=== PATIENT | female | born 1950 | race African-American/Black ===

== ENCOUNTER 2021-04-11 15:37 | Emergency (ER) | payer OTHER, SELFPAY ==
--- NOTE | 2021-04-11 16:12 | RAD REPORT ---
EXAM DESCRIPTION: CT - Head Brain Wo Cont - 04/11/2021 4:03 pm CLINICAL HISTORY: right leg weakness COMPARISON: <Comparisons> TECHNIQUE: All CT scans are performed using dose optimization technique as appropriate and may inclu de automated exposure control or mA/KV adjustment according to patient size. FINDINGS: No intracranial hemorrhage, hydrocephalus or extra-axial fluid collection.Age indeterminat e though possibly acute left basal ganglia lacunar infarct. Empty sella, typically a normal variant. Mucous retention cyst in left maxillary sinus. The calvarium is intact. IMPRESSION: Findings concerning for acute left basal ganglia lacunar infarct given the patient's sym ptoms. MRI could confirm.
--- NOTE | 2021-04-11 16:33 | RAD REPORT ---
EXAM DESCRIPTION: RAD - Chest Single View - 04/11/2021 4:22 pm CLINICAL HISTORY: left leg weakness COMPARISON: No comparisons FINDINGS: Lines: None. Lungs: No evidence of edema or pneumonia. Pleural: No significant pleural effusions or pneumothorax. Cardiac: The heart size is within normal limits. Bones: No acute fractures. Other: IMPRESSION: No acute cardiopulmonary disease.
[2021-04-11 16:45] LABS: Absolute Lymphocytes (CBC) 2.4 K/uL (0.7-4.9); Basophils % 0.4 % (0-1.3); Hematocrit 37.9 % (36.0-45.0); Lymphocytes % 23.6 % (15.3-44.8); MPV 7.4 fL (7.6-11.3); RBC Red Blood Cell Count 4.61 M/uL (3.86-4.86)
[2021-04-11 16:54] LABS: Protime INR 1.09
[2021-04-11 17:01] LABS: ALT/SGPT 16 U/L (12-78); AST/SGOT 20 U/L (15-37); Alkaline Phosphatase 73 U/L (45-117); BUN Blood Urea Nitrogen 15 mg/dL (7-18); Bicarbonate 28 mmol/L (21-32); Bilirubin Direct 0.3 mg/dL (0-0.2); Bilirubin Total 1.6 mg/dL (0.2-1.0); Glucose Level 103 mg/dL (74-106); Magnesium 2.1 mg/dL (1.8-2.4); NT PRO-BNP 170 pg/mL (<125); Potassium 3.3 mmol/L (3.5-5.1); Protein, Total 10.1 g/dL (6.4-8.2); Sodium Level 141 mmol/L (136-145); Troponin (Emerg Dept Use Only) < 0.02 ng/mL (0.0-0.045)
[2021-04-11] MEDS ORDERED: METOPROLOL TAR 50 MG TAB ONE (17:16)
[2021-04-11] MEDS ORDERED: ASPIRIN 81 MG CHEWABLE TABLET ONE (17:16)
[2021-04-11] MEDS ORDERED: METOPROLOL TARTRATE 5 MG/5 ML INJ IV ONE (17:17)
[2021-04-11] MEDS ORDERED: NA CHLORIDE 0.9% 1,000 ML ONE (17:17)
[2021-04-11] MEDS ORDERED: NA CHLORIDE 0.9% 100 ML ONE (17:46)
[2021-04-11] MEDS ORDERED: FOLIC ACID 5 MG/ML VIAL ONE (17:46)
--- NOTE | 2021-04-11 18:00 | RAD REPORT ---
EXAM DESCRIPTION: CT - Neck Angio - 04/11/2021 5:51 pm CLINICAL HISTORY: weakness of right arm and right leg COMPARISON: No comparisons TECHNIQUE: CT angiography of the neck vessels was performed with MIPs. All CT scans are performed using dose optimization technique as appropriate and may include automated exposure control or mA/KV adjustment according to patient size. FINDINGS: A left aortic arch is identified with normal three vessel configuration of the great vesse ls. No significant flow abnormality is seen of the common carotid bilaterally. No significant stenosis is identified involving the cervical segments of both internal carotid arteri es. Normal flow is seen within both vertebral arteries. Multinodular thyroid. IMPRESSION: No significant flow abnormality of the neck vessels is identified.
--- NOTE | 2021-04-11 18:01 | RAD REPORT ---
EXAM DESCRIPTION: CT - Head angio - 04/11/2021 5:51 pm CLINICAL HISTORY: right arm and right leg weakness COMPARISON: Head Brain Wo Cont dated 04/11/2021 TECHNIQUE: CT angiography of the head was performed with MIPs. All CT scans are performed using dose optimization technique as appropriate and may include automated exposure control or mA/KV adjustment according to patient size. FINDINGS: Anterior circulation: No aneurysm or large vessel occlusion. No hemodynamically significant stenosis. No arteriovenous malf ormation identified. 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 No aneurysm or large vessel occlusion. No hemodynamically significant stenosis. No arteriovenous malformation identified. IMPRESSION: No significant flow abnormality is detected.
[2021-04-11] MEDS ORDERED: dilTIAZem HCL 25 MG/5 ML VIAL IV ONE (18:48)
[2021-04-11] MEDS ORDERED: Nicardipine/NS 25 MG/250 ML KIT IV ONE (18:57)
--- NOTE | 2021-04-11 19:03 | EDPHYS ---
Physician Documentation [facility] Name: Jaja Pan Age: 71 yrs Sex: Female : 1950 Arrival Date: 04/11/2021 Time: 15:42 Bed 14 Private MD: ED Physician Ulises Stokes HPI: 04/11 16:15 This 71 yrs old Black Female presents to ER via Wheelchair with complaints of Trouble cp Walking. 16:15 The patient presents to the emergency department with weakness of the right lower cp extremity, impaired coordination. Onset: The symptoms/episode began/occurred patient reports 2 days ago, Monday evening. Context: occurred at home. Associated signs and symptoms: Pertinent negatives: altered mental status, fever, headache, syncope. Severity of symptoms: in the emergency department the symptoms have improved mildly. Patient's baseline: Neuro: alert and fully oriented, Motor: no deficits, Ambulation: walks without assistance, Speech: normal. Current symptoms: right leg weakness. Historical: - Allergies: 16:11 PENICILLINS; aj2 - Immunization history:: Client reports receiving the 2nd dose of the Covid vaccine, Client reports receiving the 2nd dose of the Covid vaccine. - Social history:: Smoking status: Patient reports the use of cigarette tobacco products, denies chronic smoking, but will smoke occasionally, Smoking status: Patient reports the use of cigarette tobacco products, Reports 5 cigarettes daily. ROS: 16:18 Constitutional: Negative for body aches, chills, fever, poor PO intake. cp 16:18 Eyes: Negative for injury, pain, redness, and discharge. cp 16:18 ENT: Negative for drainage from ear(s), ear pain, sore throat, difficulty swallowing, difficulty handling secretions. 16:18 Cardiovascular: Negative for chest pain, edema, palpitations. 16:18 Respiratory: Negative for cough, shortness of breath, wheezing. 16:18 Abdomen/GI: Negative for abdominal pain, nausea, vomiting, and diarrhea, constipation. 16:18 Back: Negative for pain at rest, pain with movement. 16:18 Neuro: Positive for weakness, of the right leg, Negative for altered mental status, dizziness, headache, numbness, syncope. 16:18 All other systems are negative. Exam: 16:20 ECG was reviewed by the Attending Physician. cp 16:23 Constitutional: The patient appears in no acute distress, alert, awake, cp non-diaphoretic, non-toxic, well developed, well nourished. 16:23 Head/Face: Normocephalic, atraumatic. cp 16:23 Eyes: Periorbital structures: appear normal, Pupils: equal, round, and reactive to light and accomodation, Extraocular movements: intact throughout, Conjunctiva: normal, no exudate, no injection, Sclera: no appreciated abnormality, Lids and lashes: appear normal, bilaterally. 16:23 ENT: External ear(s): are unremarkable, Ear canal(s): are normal, clear, TM's: are normal, Nose: is normal, Mouth: Lips: moist, Oral mucosa: pink and intact, moist, Posterior pharynx: Airway: no evidence of obstruction, patent. 16:23 Neck: ROM/movement: is normal, is supple, without pain, no range of motions limitations. 16:23 Chest/axilla: Inspection: normal, Palpation: is normal, no crepitus, no tenderness. 16:23 Cardiovascular: Rate: normal, Rhythm: regular, Edema: is not appreciated, JVD: is not appreciated. 16:23 Respiratory: the patient does not display signs of respiratory distress, Respirations: normal, no use of accessory muscles, no retractions, labored breathing, is not present, Breath sounds: are clear throughout, no decreased breath sounds, no stridor, no wheezing. 16:23 Abdomen/GI: Inspection: abdomen appears normal, Bowel sounds: active, all quadrants, Palpation: abdomen is soft and non-tender, in all quadrants. 16:23 Back: pain, is absent, ROM is normal. 16:23 Neuro: Orientation: to person, place \T\ time. Mentation: is normal, Motor: moves all fours, strength is 4/5 in the right leg, Sensation: no obvious gross deficits. Vital Signs: 15:58 BP 213 / 145; Pulse 92; Resp 20; Temp 98.0; Pulse Ox 99% on R/A; Pain 0/10; ch5 16:03 BP 213 / 142; Pulse 92; Resp 20; Temp 98; Pulse Ox 99% ; Pain 0/10; ch5 16:08 Weight 99.79 kg; Height 5 ft. 4 in. (162.56 cm); em1 16:36 BP 203 / 112; Pulse 78; Resp 20; Temp 98.3; Pulse Ox 99% ; Weight 99.79 kg; Height 5 aj2 ft. 4 in. (162.56 cm); 18:11 BP 228 / 114; Pulse 61; Resp 18; Temp 98.3; Pulse Ox 100% ; aj2 19:03 BP 199 / 96; Pulse 64; Resp 16; Pulse Ox 100% on R/A; iw 19:49 BP 216 / 93; Pulse 58; Resp 18; Pulse Ox 100% ; lh3 20:30 BP 194 / 94; Pulse 58; Resp 18; Pulse Ox 100% ; lh3 21:00 BP 173 / 94; Pulse 60; Resp 18; Pulse Ox 100% ; lh3 16:36 Body Mass Index 37.76 (99.79 kg, 162.56 cm) aj2 NIH Stroke Scale Scores: 16:23 NIHSS Score: 4 cp 16:38 NIHSS Score: 0 aj2 MDM: 15:54 Patient medically screened. [facility] 18:05 Data reviewed: vital signs, nurses notes, lab test result(s), EKG, radiologic studies, cp CT scan, plain films. 18:05 Test interpretation: by ED physician or midlevel provider: ECG, plain radiologic cp studies. Counseling: I had a detailed discussion with the patient and/or guardian regarding: the historical points, exam findings, and any diagnostic results supporting the discharge/admit diagnosis, lab results, radiology results, the need to transfer to another facility, for higher level of care. 18:45 Physician consultation: was contacted at 18:45, DR Ace, neuroly \T\ [facility] wants cardene drip discontinued and give IV hydralazine. Wants systolic pressure of less than 220 and above 200. 19:57 Physician consultation: was contacted at 19:00, regarding regarding transfer, to [facility]. patient's condition, accepting physician will be DR Ford, hospitalist. 04/11 15:59 Order name: Basic Metabolic Panel cp 04/11 15:59 Order name: CBC with Diff cp 04/11 15:59 Order name: LFT's cp 04/11 15:59 Order name: Magnesium; Complete Time: 18:02 cp 04/11 15:59 Order name: NT PRO-BNP; Complete Time: 18:02 cp 10/03 15:59 Order name: PT-INR; Complete Time: 17:06 cp 04/11 17:06 Interpretation: Abnormal: PT 12.6. cp 04/11 15:59 Order name: Troponin (emerg Dept Use Only); Complete Time: 18:02 cp 04/11 15:59 Order name: XRAY Chest (1 view); Complete Time: 17:06 cp 04/11 15:59 Order name: Basic Metabolic Panel; Complete Time: 18:02 EDMS 04/11 18:02 Interpretation: Normal except: K 3.3; GFR 49; CA 10.2. cp 04/11 15:59 Order name: CBC with Automated Diff; Complete Time: 17:06 EDMS 04/11 15:59 Order name: Liver (Hepatic) Function; Complete Time: 18:02 EDMS 04/11 18:02 Interpretation: Normal except: BILIT 1.6; BILID 0.3; TP 10.1; GLOB 6.1; A/G 0.7. cp 04/11 16:47 Order name: Glucose, Ancillary Testing; Complete Time: 17:06 EDMS 04/11 18:46 Order name: SARS-COV-2 RT PCR; Complete Time: 18:56 EDMS 04/11 15:59 Order name: EKG; Complete Time: 16:00 cp 04/11 15:59 Order name: CT Head Brain wo Cont; Complete Time: 16:14 cp 04/11 16:14 Interpretation: Report reviewed. cp 04/11 16:17 Order name: CT Head Angio; Complete Time: 18:02 cp 04/11 16:17 Order name: CT Neck Angio; Complete Time: 18:02 cp 04/11 15:59 Order name: Cardiac monitoring; Complete Time: 17:13 cp 04/11 15:59 Order name: EKG - Nurse/Tech; Complete Time: 16:25 cp 04/11 15:59 Order name: IV Saline Lock; Complete Time: 16:25 cp 04/11 15:59 Order name: Labs collected and sent; Complete Time: 16:25 cp 04/11 15:59 Order name: O2 Per Protocol; Complete Time: 16:25 cp 04/11 15:59 Order name: O2 Sat Monitoring; Complete Time: 16:25 cp EC:20 Rate is 83 beats/min. Rhythm is regular. SC interval is normal. QRS interval is normal. cp QT interval is normal. T waves are Inverted in leads aVL, aVR. Interpreted by me. Reviewed by me. Administered Medications: 18:47 Discontinued: Cardene (niCARdipine) 5 mg/hr IV at calculated rate continuous; 5mg/hr cp 16:26 CANCELLED (Physician Discretion): Metoprolol 25 mg PO once cp 16:53 Drug: Lopressor (metoprolol) 5 mg Route: IVP; Site: right antecubital; aj2 21:10 Follow up: Response: No adverse reaction lh3 16:53 Drug: Metoprolol 50 mg Route: PO; aj2 21:10 Follow up: Response: No adverse reaction lh3 16:54 Drug: NS 0.9% 500 ml Route: IV; Rate: bolus; Site: right antecubital; aj2 16:54 Drug: Aspirin Chewable Tablet 324 mg Route: PO; aj2 17:00 Drug: foLIC Acid 1 mg Route: IVPB; Site: right antecubital; aj2 18:24 Not Given (Physician Discretion): Cardizem (diltiazem) 10 mg IVP once; Over 2 minutes cp 18:31 Drug: NS 0.9% 500 ml Route: IV; Rate: 125 ml/hr; Site: right antecubital; aj2 18:38 Drug: Cardene (niCARdipine) 5 mg/hr Route: IV; Rate: calculated rate; Site: right iw antecubital; 19:03 Not Given (Hemodynamic Parameters): hydrALAZINE 5 mg IVP once; may repeat if systolic iw pressure over 220 after 20 minutes 20:24 Drug: hydrALAZINE 10 mg {Note: Per Socorro Ballesteros, CONSTRUCTION HELPER, pt target Systolic BP needs to be lh3 180-Pt current BP 207/101.} Route: IVP; Site: right antecubital; 21:09 Follow up: Response: No adverse reaction; Blood pressure is lowered lh3 21:06 Not Given (Other Intervention Used): hydrALAZINE 5 mg IVP once; target systolic lh3 pressure of between 220 and 200 Point of Care Testing: Blood Glucose: 16:11 Blood Glucose: 89 mg/dL; aj2 Ranges: Critical Glucose Levels:Adult <50 mg/dl or >400 mg/dl <40 mg/dl or >180 mg/dl Disposition: 04/12 06:40 Co-signature as Attending Physician, Ulises Stokes MD I agree with the assessment and joesph plan of care. Disposition Summary: 04/11/21 19:02 Transfer Ordered Transfer Location: [facility] cp Reason: Higher level of care cp Condition: Stable cp Problem: new cp Symptoms: have improved cp Accepting Physician: DR Ford(04/11/21 21:13) lh3 Diagnosis - Cerebral infarction, unspecified cp Forms: - Medication Reconciliation Form cp - SBAR form cp NIH Stroke Scale - NIH Stroke Score Date: 04/11/2021 Time: 16:23 Total Score = 4 1a. Level of Consciousness (LOC) - 0(Alert) 1b. Level of Consciousness (LOC) (Month \T\ Age) - 0(Both) 1c. LOC Commands (Open \T\ Closes Eyes/Manufacturing Engineer Automotive) - 0(Both) 2. Best Gaze (Lateral Gaze Paresis) - 0(Normal) 3. Visual Field Loss - 0(No visual loss) 4. Facial Palsy - 0(Normal) 5a. Left Arm: Motor (10-second hold) - 0(No drift) 5b. Right Arm: Motor (10-second hold) - 1(Drift) 6a. Left Leg: Motor (5-second hold - always test supine) - 0(No drift) 6b. Right Leg: Motor (5-second hold - always test supine) - 1(Drift) 7. Limb Ataxia (finger/nose \T\ heel/black - test with eyes open) - 2(Present in two limbs) 8. Sensory Loss (pinprick arms/legs/face) - 0(Normal) 9. Best Language: Aphasia (description/naming/reading) - 0(No aphasia) 10. Dysarthria (speech clarity - read or repeat words) - 0(Normal) 11. Extinction and Inattention (visual/tactile/auditory/spatial/personal) - 0(No abnormality) Initials: cp NIH Stroke Scale - NIH Stroke Score Date: 04/11/2021 Time: 16:38 Total Score = 0 1a. Level of Consciousness (LOC) - 0(Alert) 1b. Level of Consciousness (LOC) (Month \T\ Age) - 0(Both) 1c. LOC Commands (Open \T\ Closes Eyes/Manufacturing Engineer Automotive) - 0(Both) 2. Best Gaze (Lateral Gaze Paresis) - 0(Normal) 3. Visual Field Loss - 0(No visual loss) 4. Facial Palsy - 0(Normal) 5a. Left Arm: Motor (10-second hold) - 0(No drift) 5b. Right Arm: Motor (10-second hold) - 0(No drift) 6a. Left Leg: Motor (5-second hold - always test supine) - 0(No drift) 6b. Right Leg: Motor (5-second hold - always test supine) - 0(No drift) 7. Limb Ataxia (finger/nose \T\ heel/black - test with eyes open) - 0(Absent) 8. Sensory Loss (pinprick arms/legs/face) - 0(Normal) 9. Best Language: Aphasia (description/naming/reading) - 0(No aphasia) 10. Dysarthria (speech clarity - read or repeat words) - 0(Normal) 11. Extinction and Inattention (visual/tactile/auditory/spatial/personal) - 0(No abnormality) Initials: aj2 Signatures: Dispatcher [employer] EDMS Ulises Stokes MD MD cha Williams, Irene, RN RN iw Ulises Ballesteros PA PA cp Sommer Cool, RN RN 3 Christine Ball [facility] Jaiden Aparicio, RN RN ch5 Corrections: (The following items were deleted from the chart) 04/11 16:26 16:24 Metoprolol 25 mg PO once ordered. cp cp 17:54 16:57 CORONAVIRUS+MR.LAB.BRZ ordered. EDMS EDMS 19:05 18:29 Misc. Order ordered. cp cp 21:13 19:02 DR Ford cp lh3
--- NOTE | 2021-04-11 19:03 | ER ---
Nurse's Notes [facility] Name: Jaja Pan Age: 71 yrs Sex: Female : 1950 Arrival Date: 04/11/2021 Time: 15:42 Bed 14 Private MD: Diagnosis: Cerebral infarction, unspecified Presentation: 04/11 15:58 Chief complaint: Patient states: Pt had sudden onset of weakness in left leg Monday. ch5 Unable to walk. she has also stopped taking HTN meds " because they make my pressure go up". Coronavirus screen: Vaccine status: Patient reports receiving the 2nd dose of the covid vaccine. Ebola Screen: Patient negative for fever greater than or equal to 101.5 degrees Fahrenheit, and additional compatible Ebola Virus Disease symptoms Patient denies exposure to infectious person. Patient denies travel to an Ebola-affected area in the 21 days before illness onset. An acute neurological deficit is present. Initial Sepsis Screen: Does the patient meet any 2 criteria? No. Patient's initial sepsis screen is negative. Does the patient have a suspected source of infection? No. Patient's initial sepsis screen is negative. Risk Assessment: Do you want to hurt yourself or someone else?. Onset of symptoms is unknown. 15:58 Method Of Arrival: Wheelchair 5 15:58 Acuity: ALBERTO 2 ch5 Triage Assessment: 15:58 The onset of the patients symptoms was more than six hours ago. General: Appears in no ch5 apparent distress. Behavior is cooperative, anxious. Pain: Denies pain. Neuro: in right leg(s) 16:11 The onset of the patients symptoms was more than six hours ago. The onset of the aj2 patients symptoms was April 09, 2021 at 19:00. General: Appears in no apparent distress. comfortable. Pain: Denies pain. Neuro: No deficits noted. Reports. Cardiovascular: Rhythm is sinus rhythm. Respiratory: No deficits noted. Respiratory effort is even, unlabored. Stroke Activation: Symptom onset > 6 hours Physician: Stroke Attending; Name: ; Notified At: ; Arrived At: Physician: Chief Stroke Resident; Name: ; Notified At: ; Arrived At: Physician: Stroke Resident; Name: ; Notified At: ; Arrived At: Physician: ED Attending; Name: ; Notified At: ; Arrived At: Physician: ED Resident; Name: ; Notified At: ; Arrived At: Historical: - Allergies: 16:11 PENICILLINS; aj2 - Immunization history:: Client reports receiving the 2nd dose of the Covid vaccine, Client reports receiving the 2nd dose of the Covid vaccine. - Social history:: Smoking status: Patient reports the use of cigarette tobacco products, denies chronic smoking, but will smoke occasionally, Smoking status: Patient reports the use of cigarette tobacco products, Reports 5 cigarettes daily. Screenin:03 Abuse screen: Denies threats or abuse. Denies injuries from another. Nutritional ch5 screening: No deficits noted. Tuberculosis screening: No symptoms or risk factors identified. Fall Risk Gait- Weak (10 pts.). Assessment: 16:38 The patient passed the bedside swallow screening. Oral medications may be given as aj2 ordered. Contact Physician for further diet orders. 16:38 Reassessment: Patient appears in no apparent distress at this time. Patient and/or aj2 family updated on plan of care and expected duration. Pain level reassessed. Patient is alert, oriented x 3, equal unlabored respirations, skin warm/dry/pink. Patient denies pain at this time. Patient states feeling better. Patient states symptoms have improved. 16:38 T-PA (Activase) Screening: Contraindications: Patient reports onset of signs and iw symptoms of stroke greater than 6 hours ago: Yes. 17:45 Reassessment: Patient appears in no apparent distress at this time. Patient and/or aj2 family updated on plan of care and expected duration. Pain level reassessed. Patient is alert, oriented x 3, equal unlabored respirations, skin warm/dry/pink. Patient states feeling better. Patient states symptoms have improved. 17:45 Reassessment: \\T\\CT. aj2 17:45 VAN Scoring:. The patient is alert, and able to follow commands. The patient does not aj2 exhibit slurred or garbled speech. The patient is not exhibiting difficulty speaking. The patient does not exhibit difficulty understanding words. The patient is able to swallow own secretions with no drooling or need for suction. Patient tolerated one teaspoon of water. No drooling, immediate coughing, gurgling, or clearing of the throat was noted. The patient tolerated 90mL of water. No drooling, immediate coughing, gurgling, or clearing of the throat was noted. The patient passed the bedside swallow screening. Oral medications may be given as ordered. Contact Physician for further diet orders. Provider notified of bedside swallow screening results: Ulises Stokes MD. 18:11 Reassessment: Patient appears in no apparent distress at this time. Patient and/or aj2 family updated on plan of care and expected duration. Pain level reassessed. Patient is alert, oriented x 3, equal unlabored respirations, skin warm/dry/pink. Patient denies pain at this time. Patient states feeling better. Patient states symptoms have improved. Returned fro CT. General: Behavior is calm, cooperative. 18:49 Reassessment: after speaking with Dr. Morelos at [facility]' new order to s/c cardene iw infusion and give 5 mg hydralazine IVP once, target BP at 220 systolic. 19:30 Reassessment: Patient and/or family updated on plan of care and expected duration. Pain lh3 level reassessed. Patient is alert, oriented x 3, equal unlabored respirations, skin warm/dry/pink. Assumed care from ILIANA May at this time. 19:49 Reassessment: No changes from previously documented assessment. Patient and/or family lh3 updated on plan of care and expected duration. Pain level reassessed. Patient is alert, oriented x 3, equal unlabored respirations, skin warm/dry/pink. Patient denies pain at this time. Vital Signs: 15:58 BP 213 / 145; Pulse 92; Resp 20; Temp 98.0; Pulse Ox 99% on R/A; Pain 0/10; ch5 16:03 BP 213 / 142; Pulse 92; Resp 20; Temp 98; Pulse Ox 99% ; Pain 0/10; ch5 16:08 Weight 99.79 kg; Height 5 ft. 4 in. (162.56 cm); em1 16:36 BP 203 / 112; Pulse 78; Resp 20; Temp 98.3; Pulse Ox 99% ; Weight 99.79 kg; Height 5 aj2 ft. 4 in. (162.56 cm); 18:11 BP 228 / 114; Pulse 61; Resp 18; Temp 98.3; Pulse Ox 100% ; aj2 19:03 BP 199 / 96; Pulse 64; Resp 16; Pulse Ox 100% on R/A; iw 19:49 BP 216 / 93; Pulse 58; Resp 18; Pulse Ox 100% ; lh3 20:30 BP 194 / 94; Pulse 58; Resp 18; Pulse Ox 100% ; lh3 21:00 BP 173 / 94; Pulse 60; Resp 18; Pulse Ox 100% ; lh3 16:36 Body Mass Index 37.76 (99.79 kg, 162.56 cm) aj2 Vitals: 18:11 Cardiac Rhythm Assessment Sinus rhythm. aj2 19:49 Cardiac Rhythm Assessment Sinus sidra. lh3 NIH Stroke Scale Scores: 16:23 NIHSS Score: 4 cp 16:38 NIHSS Score: 0 aj2 ED Course: 15:42 Patient arrived in ED. am2 15:53 Ulises Ballesteros PA is PHCP. cp 15:53 Ulises Stokes MD is Attending Physician. cp 15:54 Christine Ball is Primary Nurse. aj2 16:01 Triage completed. ch5 16:02 CT Head Brain wo Cont In Process Unspecified. EDMS 16:03 Patient has correct armband on for positive identification. Placed in gown. Bed in low ch5 position. Call light in reach. 16:03 No provider procedures requiring assistance completed. ch5 16:11 Arm band placed on right wrist. aj2 16:14 EKG done, by ED staff, reviewed by Ulises ZHANG. 3 16:17 Initial lab(s) drawn, by ak, sent to lab. Inserted saline lock: 20 gauge in right dh3 antecubital area, using aseptic technique. Blood collected. 16:22 XRAY Chest (1 view) In Process Unspecified. EDMS 16:36 No apparent distress. Resting quietly. aj2 16:36 IV is patent, is intact. aj2 17:12 Basic Metabolic Panel Sent. aj2 17:13 CBC with Diff Sent. aj2 17:13 LFT's Sent. aj2 17:13 Magnesium Sent. aj2 17:13 NT PRO-BNP Sent. aj2 17:45 No apparent distress. aj2 17:45 Resting quietly. aj2 17:45 IV is patent, is intact. aj2 17:50 CT Head Angio In Process Unspecified. EDMS 17:51 CT Neck Angio In Process Unspecified. EDMS 18:11 IV is patent, is intact. aj2 18:37 Initiated transfer at [facility] with Aurelia Mosqueda. Call was connected to VICENTE Sullivan, tt3 pt provider for consultation with the stroke physician. 18:54 Aurelia Mosqueda called back with their hospitalist to consult with VICENTE Sullivan, pt tt3 provider regarding the transfer request. 19:46 Jessika Miles gave admin approval. The pt is going to [facility] Room 918. The tt3 accepting physician is Dr. Ford. Nurse to call report to . Face sheet and covid result to be faxed to per Jessika's request. 19:49 Patient transferred, IV remains in place. lh3 21:11 Report given to ILIANA Loving at [facility]. 3 Administered Medications: 18:47 Discontinued: Cardene (niCARdipine) 5 mg/hr IV at calculated rate continuous; 5mg/hr cp 16:26 CANCELLED (Physician Discretion): Metoprolol 25 mg PO once cp 16:53 Drug: Lopressor (metoprolol) 5 mg Route: IVP; Site: right antecubital; aj2 21:10 Follow up: Response: No adverse reaction 3 16:53 Drug: Metoprolol 50 mg Route: PO; aj2 21:10 Follow up: Response: No adverse reaction 3 16:54 Drug: NS 0.9% 500 ml Route: IV; Rate: bolus; Site: right antecubital; aj2 16:54 Drug: Aspirin Chewable Tablet 324 mg Route: PO; aj2 17:00 Drug: foLIC Acid 1 mg Route: IVPB; Site: right antecubital; aj2 18:24 Not Given (Physician Discretion): Cardizem (diltiazem) 10 mg IVP once; Over 2 minutes cp 18:31 Drug: NS 0.9% 500 ml Route: IV; Rate: 125 ml/hr; Site: right antecubital; aj2 18:38 Drug: Cardene (niCARdipine) 5 mg/hr Route: IV; Rate: calculated rate; Site: right iw antecubital; 19:03 Not Given (Hemodynamic Parameters): hydrALAZINE 5 mg IVP once; may repeat if systolic iw pressure over 220 after 20 minutes 20:24 Drug: hydrALAZINE 10 mg {Note: Per Socorro Ballesteros NP, pt target Systolic BP needs to be lh3 180-Pt current BP 207/101.} Route: IVP; Site: right antecubital; 21:09 Follow up: Response: No adverse reaction; Blood pressure is lowered 3 21:06 Not Given (Other Intervention Used): hydrALAZINE 5 mg IVP once; target systolic 3 pressure of between 220 and 200 Point of Care Testing: Blood Glucose: 16:11 Blood Glucose: 89 mg/dL; aj2 Ranges: Outcome: 19:02 ER care complete, transfer ordered by . cp 21:11 Transferred to [facility], Transfer form completed. 3 21:11 Transferred by ground EMS 21:11 Condition: good 21:11 Instructed on the need for transfer. 21:13 [facility] NIH Stroke Scale - NIH Stroke Score Date: 04/11/2021 Time: 16:23 Total Score = 4 1a. Level of Consciousness (LOC) - 0(Alert) 1b. Level of Consciousness (LOC) (Month \\T\\ Age) - 0(Both) 1c. LOC Commands (Open \\T\\ Closes Eyes/Computer Art Instructor) - 0(Both) 2. Best Gaze (Lateral Gaze Paresis) - 0(Normal) 3. Visual Field Loss - 0(No visual loss) 4. Facial Palsy - 0(Normal) 5a. Left Arm: Motor (10-second hold) - 0(No drift) 5b. Right Arm: Motor (10-second hold) - 1(Drift) 6a. Left Leg: Motor (5-second hold - always test supine) - 0(No drift) 6b. Right Leg: Motor (5-second hold - always test supine) - 1(Drift) 7. Limb Ataxia (finger/nose \\T\\ heel/black - test with eyes open) - 2(Present in two limbs) 8. Sensory Loss (pinprick arms/legs/face) - 0(Normal) 9. Best Language: Aphasia (description/naming/reading) - 0(No aphasia) 10. Dysarthria (speech clarity - read or repeat words) - 0(Normal) 11. Extinction and Inattention (visual/tactile/auditory/spatial/personal) - 0(No abnormality) Initials: cp NIH Stroke Scale - NIH Stroke Score Date: 04/11/2021 Time: 16:38 Total Score = 0 1a. Level of Consciousness (LOC) - 0(Alert) 1b. Level of Consciousness (LOC) (Month \\T\\ Age) - 0(Both) 1c. LOC Commands (Open \\T\\ Closes Eyes/Computer Art Instructor) - 0(Both) 2. Best Gaze (Lateral Gaze Paresis) - 0(Normal) 3. Visual Field Loss - 0(No visual loss) 4. Facial Palsy - 0(Normal) 5a. Left Arm: Motor (10-second hold) - 0(No drift) 5b. Right Arm: Motor (10-second hold) - 0(No drift) 6a. Left Leg: Motor (5-second hold - always test supine) - 0(No drift) 6b. Right Leg: Motor (5-second hold - always test supine) - 0(No drift) 7. Limb Ataxia (finger/nose \\T\\ heel/black - test with eyes open) - 0(Absent) 8. Sensory Loss (pinprick arms/legs/face) - 0(Normal) 9. Best Language: Aphasia (description/naming/reading) - 0(No aphasia) 10. Dysarthria (speech clarity - read or repeat words) - 0(Normal) 11. Extinction and Inattention (visual/tactile/auditory/spatial/personal) - 0(No abnormality) Initials: aj2 Signatures: Dispatcher [employer] EDMS Linda Landa, RN ILIANA iw Dereje Hill em1 Ulises Ballesteros PA PA Coty Barragan am2 Nery Torres 3 Romulo Sharif tt3 Sommer Cool RN RN 3 Christine Ball 2 Jaiden Aparicio RN RN ch5 Corrections: (The following items were deleted from the chart) 17:54 17:41 CORONAVIRUS+ drawn and sent. aj2 EDMS
[2021-04-11] MEDS ORDERED: HYDRALAZINE HCL 20 MG/ML VIAL ONE ×2 (19:23→20:46)
[2021-04-11 21:23] VITALS: TEMP 98.3
[2021-04-11 21:25] VITALS: O2SAT 100
[2021-04-11 21:30] VITALS: BP 173/94
--- NOTE | 2021-04-13 18:14 | EKG ---
Test Date: 2021-04-11 Test Time: 16:12:39 Director Marketing Communications: BLUE MEASUREMENT RESULTS: Intervals: Rate: 83 ND: 190 QRSD: 86 QT: 368 QTc: 432 [place]: P: 55 ND: 190 QRS: -12 T: 69 INTERPRETIVE STATEMENTS: Normal sinus rhythm Possible Left atrial enlargement Left ventricular hypertrophy Abnormal ECG Compared to ECG 12/30/2013 15:51:25 Left ventricular hypertrophy now present Sinus bradycardia no longer present First degree AV block no longer present Electronically Signed On 04-13-21 18:06:32 CDT by Theodore Patricia
== END 2021-04-11 21:13 | disposition short-term general hospital (02) ==
LOC: ER 15:37
DX: I63.9 Cerebral infarction, unspecified (principal); R29.704 NIHSS score 4; F17.210 Nicotine dependence, cigarettes, uncomplicated; Z88.0 Allergy status to penicillin; Z20.822 Contact with and (suspected) exposure to COVID-19
CPT/HCPCS: 93005; 85025; 80048; 36415; 83735; 85610; 82947; 80076; 84484; 83880; 70450; 70496; 70498; 71045; 96375; 96374; 99285; U0003; Q9967; J0360 ×2; J7040

== ENCOUNTER 2021-07-26 09:43 | Emergency (ER) | payer OTHER ==
--- OUTSIDE RECORDS SUMMARY | 2021-07-26 09:46 | XMS REPORT | Continuity of Care Document ---
:1950 Author Organization [facility] t Address [address] [place] [address] Care Team Providers Name Role Phone Cassie SMALL Attending Clinician GILMAR PEREZ Attending Clinician Unavailable System , Not In Attending Clinician Unavailable Jennifer MOTA Attending Clinician Unavailable KACEY DECKER Admitting Clinician Unavailable Payers Payer Name Policy Type Policy Number Effective Date Expiration Date S ource [employer] MEDICARE [id number] 2019 ADV 00:00:00 Problems This patient has no known problems. Allergies, Adverse Reactions, Alerts Allergy Allergy Status Severity Reaction(s) Onset Inactive Treating Comm ents Source Name Type Date Date Clinician PENICILL Allergy Active [place]ives 2020-[address] [facility] [place] 0-03 kes - 00:00: [address] NO KNOWN Allergy Active [facility] Social History Social Habit Start Date Stop Date Quantity Comments Source Sex Assigned At [birth year] [facility] 00:00:00 00:00:00 Smoking Status Start Date Stop Date Source Tobacco smoking consumption unknown [facility] Medications This patient has no known medications. Procedures Procedure Date / Time Performed Performing Clinician [facility] e EKG-REHAB 2021-04-16 17:42:21 System, Provider Not In [place] [facility] e[facility] Encounters Start End Encounter Admission Attending Care Care Encounter Source Date/Time Date/Time Type Type Clinicians Facility Department ID 2021-04-28 2021-04-28 EXT [facility] IP Cassie, NITZA MSRDP [id number] [place] 00:00:00 00:00:00 [facility] [id number] H ealth [id number] 2021-04-11 2021-04-15 [id number] [facility] 22:27:00 18:05:00 ELINA Med 2021-04-15 2021-04-15 Orders System, EXT MSRDP [id number] 00:00:00 00:00:00 Only Provider LOCATION [id number] Health Not In [id number] Results Test Description Test Time Test Comments Results Result Comments Source MAGNESIUM 2021-04-15 05:34:37 Test Item Value Reference Range Interpretation Comme nts MAGNESIUM (BEAKER) (test code = 627) 2.1 mg/dL 1.6-2.6 Branch Maker ID - CORNELIA [id number] 05:34:37 Test Item Value Reference Range Interpretation Comments PHOSPHORUS (BEAKER) (test code = 3.4 mg/dL 2.3-4.7 604) Branch Maker ID - CORNELIA [facility] (HEMOGRAM ONLY)2021-04-15 05:04:04 Test Item Value Reference Range Interpretation Comments WHITE BLOOD CELL COUNT (BEAKER) 7.0 K/ L 3.5-10.5 (test code = 775) RED BLOOD CELL COUNT (BEAKER) 4.54 M/ L 3.93-5.22 (test code = 761) HEMOGLOBIN (BEAKER) (test code = 12.5 GM/DL 11.2-15.7 410) HEMATOCRIT (BEAKER) (test code = 38.7 % 34.1-44.9 411) MEAN CORPUSCULAR VOLUME (BEAKER) 85.2 fL 79.4-94.8 (test code = 753) MEAN CORPUSCULAR HEMOGLOBIN 27.5 pg 25.6-32.2 (BEAKER) (test code = 751) MEAN CORPUSCULAR HEMOGLOBIN CONC 32.3 GM/DL 32.2-35.5 (BEAKER) (test code = 752) RED CELL DISTRIBUTION WIDTH 13.7 % 11.7-14.4 (BEAKER) (test code = 412) PLATELET COUNT (BEAKER) (test 361 K/CU MM 150-450 code = 756) MEAN PLATELET VOLUME (BEAKER) 9.4 fL 9.4-12.3 (test code = 754) NUCLEATED RED BLOOD CELLS 0 /100 WBC 0-0 (BEAKER) (test code = 413) SARS-COV2/RT-PCR ([facility])2021-04-14 21:39:57 Test Item Value Reference Range Interpretation Comments SARS-COV2/RT-PCR (test code = Negative Negative [id number]) Negative result for this test determines that SARS-CoV-2 RNA was not present in the specimen above the Limit of Detection (LOD). However, Negative results do not preclude SARS-CoV-2 infection and should not be used as the sole basis for treatment or patient management decisions. Negative results must be combined with clinical observations, patient history, and epidemiological information. A false negative result may occur if a specimen is improperly collected, transported, or handled. A false negative result should be considered if patient's recent exposures or clinical presentation indicate that COVID-19 (SARS-CoV-2) is likely and diagnostic tests for other causes of illness are negative. Re-testing should be considered in cases of suspected false negatives.The limit of detection for this assay is 100 copies/mL.This SARS-CoV-2 test is a real-time RT_PCR test intended for the qualitative detection of nucleic acid from SARS-CoV-2 in a nasopharyngeal swab specimen collected from individuals suspected of COVID-19 by their healthcare provider.This test has not been Food and Drug Administration (FDA) cleared or approved. This is a modified version of an approved Emergency Use Authorization (EUA) and is in the process of review by the FDA. Once authorized by the FDA, the issued EUA will be e ffective until the declaration that circumstances exist justifying the authorization of the emergency use of in vitro diagnostic tests for detection and/or diagnosis of COVID-19 is terminated under Section 564(b)(2) of the Act or the EUA is revoked under Section 564(g) of the Act.Testing was performedusing the Rader SARS-CoV-2 assay.Fact Sheet for Healthcare Providers:https://www.molecular.rader/chayo/RT SARS-CoV-2 HCP Fact Sheet 51- 710294.pdfFact Sheet for Healthcare Patients:https://www.molecular.rader/chayo/RT SARS-CoV-2 Patient Fact Sheet EN [id number] 05:18:03 Test Item Value Reference Range Interpretation Comments PHOSPHORUS (BEAKER) (test code = 3.5 mg/dL 2.3-4.7 604) Branch Maker ID - jrlBASIC METABOLIC [id number] 05:18:02 Test Item Value Reference Range Interpretation Comments SODIUM (BEAKER) 140 meq/L 136-145 (test code = 381) POTASSIUM (BEAKER) 3.8 meq/L 3.5-5.1 (test code = 379) CHLORIDE (BEAKER) 106 meq/L 98-107 (test code = 382) CO2 (BEAKER) (test 27 meq/L 22-29 code = 355) BLOOD UREA NITROGEN 16 mg/dL 7-21 (BEAKER) (test code = 354) CREATININE (BEAKER) 1.01 mg/dL 0.57-1.25 (test code = 358) GLUCOSE RANDOM 104 mg/dL 70-105 (BEAKER) (test code = 652) CALCIUM (BEAKER) 9.3 mg/dL 8.4-10.2 (test code = 697) EGFR (BEAKER) (test 66 mL/min/1.73 ESTIMA DREW GFR IS code = 1092) sq m NOT ACCURATE CREATININE CLEARANCE IN PREDICTING GLOMERULAR FILTRATION RATE . ESTIMATED GFR I S NOT APPLICABLE FOR DIALYSIS PATIEN TS. Branch Maker ID - [id number] 05:18:02 Test Item Value Reference Range Interpretation Comments MAGNESIUM (BEAKER) (test code = 2.1 mg/dL 1.6-2.6 627) Branch Maker ID - jrlCBC (HEMOGRAM ONLY)2021-04-14 04:54:47 Test Item Value Reference Range Interpretation Comments WHITE BLOOD CELL COUNT (BEAKER) 6.8 K/ L 3.5-10.5 (test code = 775) RED BLOOD CELL COUNT (BEAKER) 3.86 M/ L 3.93-5.22 L (test code = 761) HEMOGLOBIN (BEAKER) (test code = 10.7 GM/DL 11.2-15.7 L 410) HEMATOCRIT (BEAKER) (test code = 32.7 % 34.1-44.9 L 411) MEAN CORPUSCULAR VOLUME (BEAKER) 84.7 fL 79.4-94.8 (test code = 753) MEAN CORPUSCULAR HEMOGLOBIN 27.7 pg 25.6-32.2 (BEAKER) (test code = 751) MEAN CORPUSCULAR HEMOGLOBIN CONC 32.7 GM/DL 32.2-35.5 (BEAKER) (test code = 752) RED CELL DISTRIBUTION WIDTH 13.8 % 11.7-14.4 (BEAKER) (test code = 412) PLATELET COUNT (BEAKER) (test 346 K/CU MM 150-450 code = 756) MEAN PLATELET VOLUME (BEAKER) 9.5 fL 9.4-12.3 (test code = 754) NUCLEATED RED BLOOD CELLS 0 /100 WBC 0-0 (BEAKER) (test code = 413) [id number] 05:58:09 Test Item Value Reference Range Interpretation Comments PHOSPHORUS (BEAKER) (test code = 3.8 mg/dL 2.3-4.7 604) Branch Maker ID - JRLBASIC METABOLIC [id number] 05:58:08 Test Item Value Reference Range Interpretation Comments SODIUM (BEAKER) 139 meq/L 136-145 (test code = 381) POTASSIUM (BEAKER) 3.6 meq/L 3.5-5.1 (test code = 379) CHLORIDE (BEAKER) 105 meq/L 98-107 (test code = 382) CO2 (BEAKER) (test 27 meq/L 22-29 code = 355) BLOOD UREA NITROGEN 19 mg/dL 7-21 (BEAKER) (test code = 354) CREATININE (BEAKER) 1.20 mg/dL 0.57-1.25 (test code = 358) GLUCOSE RANDOM 104 mg/dL 70-105 (BEAKER) (test code = 652) CALCIUM (BEAKER) 9.2 mg/dL 8.4-10.2 (test code = 697) EGFR (BEAKER) (test 54 mL/min/1.73 ESTIMA DREW GFR IS code = 1092) sq m NOT ACCURATE CREATININE CLEARANCE IN PREDICTING GLOMERULAR FILTRATION RATE . ESTIMATED GFR I S NOT APPLICABLE FOR DIALYSIS PATIEN TS. Branch Maker ID - [id number] 05:58:08 Test Item Value Reference Range Interpretation Comments MAGNESIUM (BEAKER) (test code = 2.0 mg/dL 1.6-2.6 627) Branch Maker ID - JRLCBC (HEMOGRAM ONLY)2021-04-13 05:32:46 Test Item Value Reference Range Interpretation Comments WHITE BLOOD CELL COUNT (BEAKER) 7.2 K/ L 3.5-10.5 (test code = 775) RED BLOOD CELL COUNT (BEAKER) 3.91 M/ L 3.93-5.22 L (test code = 761) HEMOGLOBIN (BEAKER) (test code = 10.9 GM/DL 11.2-15.7 L 410) HEMATOCRIT (BEAKER) (test code = 32.9 % 34.1-44.9 L 411) MEAN CORPUSCULAR VOLUME (BEAKER) 84.1 fL 79.4-94.8 (test code = 753) MEAN CORPUSCULAR HEMOGLOBIN 27.9 pg 25.6-32.2 (BEAKER) (test code = 751) MEAN CORPUSCULAR HEMOGLOBIN CONC 33.1 GM/DL 32.2-35.5 (BEAKER) (test code = 752) RED CELL DISTRIBUTION WIDTH 13.7 % 11.7-14.4 (BEAKER) (test code = 412) PLATELET COUNT (BEAKER) (test 351 K/CU MM 150-450 code = 756) MEAN PLATELET VOLUME (BEAKER) 9.3 fL 9.4-12.3 L (test code = 754) NUCLEATED RED BLOOD CELLS 0 /100 WBC 0-0 (BEAKER) (test code = 413) [id number] 13:13:00 Test Item Value Reference Range Interpretation Comments RPR SCREEN (BEAKER) (test code = Nonreactive Nonreactive 420) HEMOGLOBIN [id number] 11:58:16 Test Item Value Reference Range Interpretation Comments HEMOGLOBIN A1C (BEAKER) (test code = 4.3 % 4.3-6.1 368) MR, BRAIN, WITHOUT [id number] 08:33:00Unlisted Reason for Exam - Click Yes and Enter Reason Below->No [facility] 1950 Sex: FFINAL REPORT MR, BRAIN, WITHOUT CONTRAST INDICATION: Stroke, follow up TECHNIQUE: Multiplanar, multisequence MR imaging of the brain without intravenous contrast. COMPARISON: None FINDINGS: Focal diffusion restriction in the left basal ganglia/external capsule posteriorly. No associated susceptibility artifact. Minimal, generalized deep white matter changes. No significant volume loss. No midline shift. Normal ventricular volume. Paranasal sinuses and mastoid air cells are clear. There is normal bone marrow signal intensity within the calvarium and skull base. IMPRESSION: Nonhemorrhagic left basal ganglia/external capsule infarct. Signed: JR Samaniego Robert MD Report Verified Date/Time: 04/12/2021 08:33:48 Reading Location: [address] Neuro Reading Room VITAMIN B12 AND [id number] 03:25:46 Test Item Value Reference Range Interpretation Comments VITAMIN B12 ([employer]) 209 pg/mL 213-816 L (test code = 774) FOLATE ([employer]) > ng/mL See_Comment [Automated message] The (test code = 362) system [employer] generated this result tra nsmitted reference range : >=7.00. The reference r [facility] was not used to int erpret this result as normal/abnormal . Branch Maker ID - PRIYA WOperator ID - PRIYA WHIV-1 ANTIGEN WITH HIV-1/2 ANTIBODY 2021-04-12 01:40:58 Test Item Value Reference Range Interpretation Comments HIV-1 ANTIGEN WITH HIV 1\T\2 Nonreactive Nonreactive ANTIBODY (2) ([employer]) (test code = 2586) Branch Maker ID - DBTSH/FREE T4 IF [id number] 00:13:23 Test Item Value Reference Range Interpretation Comments THYROID STIMULATING HORMONE 1.717 uIU/mL 0.350-4.940 ([employer]) (test code = 772) Branch Maker ID - DBCOMPREHENSIVE METABOLIC [id number] 23:52:24 Test Item Value Reference Range Interpretation Comments TOTAL PROTEIN 9.0 gm/dL 6.0-8.3 H (BEAKER) (test code = 770) ALBUMIN (BEAKER) 3.9 g/dL 3.5-5.0 (test code = 1145) ALKALINE PHOSPHATASE 63 U/L 40-150 (BEAKER) (test code = 346) BILIRUBIN TOTAL 1.9 mg/dL 0.2-1.2 H (BEAKER) (test code = 377) SODIUM (BEAKER) (test 138 meq/L 136-145 code = 381) POTASSIUM (BEAKER) 3.6 meq/L 3.5-5.1 (test code = 379) CHLORIDE (BEAKER) 102 meq/L 98-107 (test code = 382) CO2 (BEAKER) (test 27 meq/L 22-29 code = 355) BLOOD UREA NITROGEN 13 mg/dL 7-21 (BEAKER) (test code = 354) CREATININE (BEAKER) 1.18 mg/dL 0.57-1.25 (test code = 358) GLUCOSE RANDOM 96 mg/dL 70-105 (BEAKER) (test code = 652) CALCIUM (BEAKER) 9.7 mg/dL 8.4-10.2 (test code = 697) AST (SGOT) (BEAKER) 18 U/L 5-34 (test code = 353) ALT (SGPT) (BEAKER) 8 U/L 6-55 (test code = 347) EGFR (BEAKER) (test 55 mL/min/1.73 ESTIMA DREW GFR IS code = 1092) sq m NOT ACCURATE CREATININE CLEARANCE IN PREDICTING GLOMERULAR FILTRATION RATE . ESTIMATED GFR I S NOT APPLICABLE FOR DIALYSIS PATIEN TS. Branch Maker ID - DBSpecimen slightly ictericLIPID [id number] 23:52:24 Test Item Value Reference Range Interpretation Comments TRIGLYCERIDES (BEAKER) (test code = 83 mg/dL 540) CHOLESTEROL (BEAKER) (test code = 193 mg/dL 631) HDL CHOLESTEROL (BEAKER) (test code 49 mg/dL = 976) LDL CHOLESTEROL CALCULATED (BEAKER) 127 mg/dL (test code = 633) Triglyceride Reference Range: Low Risk <150 Borderline 150-199 High Risk 200-499 Very High Risk >=500Cholesterol Reference Range: Low Risk <200 Borderline 200-239 High Risk >240HDL Cholesterol Reference Range: Low Risk >=60 High Risk <40LDL Cholesterol Reference Range: Optimal <100 Near Optimal 100-129 Borderline 130-159 High 160-189 Very High >=190 Branch Maker ID - DBSpecimen slightly [id number] 23:52:23 Test Item Value Reference Range Interpretation Comments MAGNESIUM (BEAKER) (test code = 1.9 mg/dL 1.6-2.6 627) Branch Maker ID - [id number] 23:52:23 Test Item Value Reference Range Interpretation Comments PHOSPHORUS (BEAKER) (test code = 3.2 mg/dL 2.3-4.7 604) Branch Maker ID - DBPROTHROMBIN TIME/[id number] 23:43:21 Test Item Value Reference Range Interpretation Comments PROTIME (BEAKER) 14.2 seconds 11.9-14.2 (test code = 759) INR (BEAKER) (test 1.12 See_Comment [Automat ed message] code = 370) The system [employer] generated this result transmitted ref erence range: <=5.90. The reference range was not used to int erpret this result as normal/abnormal . RECOMMENDED COUMADIN/WARFARIN INR THERAPY RANGESSTANDARD DOSE: 2.0 - 3.0 Includes: PROPHYLAXIS forvenous thrombosis, systemic embolization; TREATMENT for venous thrombosis and/or pulmonary embolus.HIGH RISK: Target INR is 2.5-3.5 for patients with mechanical heart valves.CBC W/PLT COUNT & AUTO DIFFERENTIAL 2021-04-11 23:29:59 Test Item Value Reference Range Interpretation Comments WHITE BLOOD CELL COUNT (BEAKER) 9.1 K/ L 3.5-10.5 (test code = 775) RED BLOOD CELL COUNT (BEAKER) 4.25 M/ L 3.93-5.22 (test code = 761) HEMOGLOBIN (BEAKER) (test code = 11.9 GM/DL 11.2-15.7 410) HEMATOCRIT (BEAKER) (test code = 34.5 % 34.1-44.9 411) MEAN CORPUSCULAR VOLUME (BEAKER) 81.2 fL 79.4-94.8 (test code = 753) MEAN CORPUSCULAR HEMOGLOBIN 28.0 pg 25.6-32.2 (BEAKER) (test code = 751) MEAN CORPUSCULAR HEMOGLOBIN CONC 34.5 GM/DL 32.2-35.5 (BEAKER) (test code = 752) RED CELL DISTRIBUTION WIDTH 13.5 % 11.7-14.4 (BEAKER) (test code = 412) PLATELET COUNT (BEAKER) (test 395 K/CU MM 150-450 code = 756) MEAN PLATELET VOLUME (BEAKER) 9.3 fL 9.4-12.3 L (test code = 754) NUCLEATED RED BLOOD CELLS 0 /100 WBC 0-0 (BEAKER) (test code = 413) NEUTROPHILS RELATIVE PERCENT 64 % (BEAKER) (test code = 429) LYMPHOCYTES RELATIVE PERCENT 27 % (BEAKER) (test code = 430) MONOCYTES RELATIVE PERCENT 8 % (BEAKER) (test code = 431) EOSINOPHILS RELATIVE PERCENT 0 % (BEAKER) (test code = 432) BASOPHILS RELATIVE PERCENT 0 % (BEAKER) (test code = 437) NEUTROPHILS ABSOLUTE COUNT 5.78 K/ L 1.56-6.13 (BEAKER) (test code = 670) LYMPHOCYTES ABSOLUTE COUNT 2.49 K/ L 1.18-3.74 (BEAKER) (test code = 414) MONOCYTES ABSOLUTE COUNT (BEAKER) 0.70 K/ L 0.24-0.36 H (test code = 415) EOSINOPHILS ABSOLUTE COUNT 0.04 K/ L 0.04-0.36 (BEAKER) (test code = 416) BASOPHILS ABSOLUTE COUNT (BEAKER) 0.03 K/ L 0.01-0.08 (test code = 417) IMMATURE GRANULOCYTES-RELATIVE 0 % 0-1 PERCENT (BEAKER) (test code = 2025)
[2021-07-26] MEDS ORDERED: NA CHLORIDE 0.9% 1,000 ML ONE (12:38)
[2021-07-26 13:00] LABS: Urine Blood Negative (Negative); Urine Glucose Negative (Negative); Urine Protein Negative (Negative); Urine Specific Gravity <=1.005 (1.005-1.030)
--- NOTE | 2021-07-26 14:07 | RAD REPORT ---
EXAM DESCRIPTION: RAD - Chest Single View - 07/26/2021 2:00 pm CLINICAL HISTORY: COUGH COMPARISON: Single-view 04/11/2021 TECHNIQUE: AP portable chest image was obtained 07/26/2021 2:00 pm . FINDINGS: Lungs are clear. Heart and vasculature are normal. No measurable pleural effusion and no p neumothorax. No acute bony abnormality seen. No acute aortic findings suspected. IMPRESSION: No acute cardiopulmonary process. No significant change from comparison study.
[2021-07-26] MEDS ORDERED: CEFTRIAXONE 1000 MG/VIAL ONE (14:14)
[2021-07-26 14:23] LABS: Absolute Lymphocytes (CBC) 2.2 K/uL (0.7-4.9); Hematocrit 33.8 % (36.0-45.0); Lymphocytes % 29.7 % (15.3-44.8); MPV 7.2 fL (7.6-11.3); RBC Red Blood Cell Count 4.13 M/uL (3.86-4.86)
[2021-07-26 14:33] LABS: Protime INR 1.05
[2021-07-26 14:51] LABS: Albumin 3.5 g/dL (3.4-5.0); Bilirubin Direct 0.4 mg/dL (0-0.2); Magnesium 2.7 mg/dL (1.8-2.4); Potassium 3.3 mmol/L (3.5-5.1); Protein, Total 9.5 g/dL (6.4-8.2); Troponin High Sensitivity 19.8 pg/mL (<58.9)
[2021-07-26 14:58] LABS: Bilirubin Total 1.5 mg/dL (0.2-1.0)
--- NOTE | 2021-07-26 15:12 | ER ---
Nurse's Notes [facility] Name: Jaja Pan Age: 71 yrs Sex: Female : 1950 Arrival Date: 07/26/2021 Time: 09:47 Bed 9 Private MD: Diagnosis: Cough;Essential (primary) hypertension;Adverse effect of slkpqucubjf-drnetryafy-wtstbh inhibitors;UTI/ Urinary tract infection, site not specified;Hypokalemia Presentation: 07/26 10:16 Chief complaint: Patient states: 'felt like my blood pressure was high this morning vg1 around 0600'. Denies h/a or NV. States has been coughing since May. [facility] started Lisinopril in April. Coronavirus screen: Vaccine status: Patient reports receiving the 2nd dose of the covid vaccine. Client denies travel out of the [place] in the last 14 days. Ebola Screen: Patient negative for fever greater than or equal to 101.5 degrees Fahrenheit, and additional compatible Ebola Virus Disease symptoms. Initial Sepsis Screen: Does the patient meet any 2 criteria? No. Patient's initial sepsis screen is negative. Does the patient have a suspected source of infection? No. Patient's initial sepsis screen is negative. Risk Assessment: Do you want to hurt yourself or someone else? Patient reports no desire to harm self or others. Onset of symptoms was July 26, 2021. 10:16 Method Of Arrival: Ambulatory vg1 10:16 Acuity: ALBERTO 3 vg1 Triage Assessment: 10:20 General: Appears in no apparent distress. comfortable, Behavior is calm, cooperative. vg1 Pain: Denies pain. Cardiovascular: Patient's skin is warm and dry. Historical: - Allergies: 10:20 PENICILLINS; vg1 - Home Meds: 10:20 lisinopril 20 mg Oral tab 1 tab once daily [Active]; amlodipine 10 mg tab 1 tab once vg1 daily [Active]; Hydralazine Oral [Active]; atorvastatin 40 mg oral tab 2 tabs once daily [Active]; - PMHx: 10:20 Hypertensive disorder; Hypercholesterolemia; vg1 - PSHx: 10:20 None; vg1 - Immunization history:: Client reports receiving the 2nd dose of the Covid vaccine. - Social history:: Smoking status: Patient/guardian denies using tobacco. Screenin:02 Abuse screen: Denies threats or abuse. Denies injuries from another. Nutritional ld1 screening: No deficits noted. Tuberculosis screening: No symptoms or risk factors identified. Fall Risk None identified. Assessment: 13:02 General: Appears in no apparent distress. comfortable, Behavior is calm, cooperative, ld1 appropriate for age. Pain: Denies pain. Neuro: Level of Consciousness is awake, alert, obeys commands, Oriented to person, place, time, situation. Cardiovascular: Capillary refill < 3 seconds Patient's skin is warm and dry. Rhythm is regular. Respiratory: Airway is patent Respiratory effort is even, unlabored, Respiratory pattern is regular, symmetrical. GI: Abdomen is round non-distended. : No signs and/or symptoms were reported regarding the genitourinary system. EENT: No signs and/or symptoms were reported regarding the EENT system. Derm: No signs and/or symptoms reported regarding the dermatologic system. Musculoskeletal: No signs and/or symptoms reported regarding the musculoskeletal system. Vital Signs: 10:16 BP 145 / 88; Pulse 88; Resp 16; Temp 98.3; Pulse Ox 100% ; Weight 74.84 kg; Height 5 vg1 ft. 3 in. (160.02 cm); Pain 0/10; 14:20 BP 143 / 86; Pulse 89; Resp 17; Pulse Ox 100% on R/A; ld1 10:16 Body Mass Index 29.23 (74.84 kg, 160.02 cm) vg1 ED Course: 09:47 Patient arrived in ED. ja2 10:20 Triage completed. vg1 10:20 Arm band placed on. vg1 12:07 Ulises Stokes MD is Attending Physician. [facility] 13:02 Carlotta Byers, ILIANA is Primary Nurse. ld1 13:02 Patient has correct armband on for positive identification. Placed in gown. Bed in low ld1 position. Call light in reach. Side rails up X2. quality assurance monitor chassis on. Pulse ox on. NIBP on. Door closed. Noise minimized. Warm blanket given. 13:02 No provider procedures requiring assistance completed. Inserted saline lock: 20 gauge ld1 in left antecubital area, using aseptic technique. Blood collected. 13:04 COVID-19/FLU A+B/RSV (Document "Date of Onset" if Symptomatic) Sent. ld1 13:59 XRAY Chest (1 view) In Process Unspecified. EDWA 15:12 Theodore Patricia MD is Referral Physician. [facility] 15:24 IV discontinued, intact, bleeding controlled, No redness/swelling at site. ld1 Administered Medications: 13:04 Drug: NS 0.9% 1000 ml Route: IV; Rate: 125 ml/hr; Site: left antecubital; ld1 14:20 Drug: Rocephin (cefTRIAXone) 1 grams Route: IV; Rate: per protocol; Site: left ld1 antecubital; 14:20 Follow up: Response: No adverse reaction ld1 15:24 Drug: Potassium Effervescent Tablet 25 mEq Route: PO; ld1 15:24 Follow up: Response: No adverse reaction ld1 Outcome: 15:12 Discharge ordered by . [facility] 15:24 Discharged to home ambulatory. ld1 15:24 Condition: stable 15:24 Discharge instructions given to patient, Instructed on discharge instructions, follow up and referral plans. medication usage, Demonstrated understanding of instructions, follow-up care, medications, Prescriptions given X 1. 15:24 Patient left the ED. ld1 Signatures: Dispatcher [employer] EDWA Ulises Stokes MD MD cha Garcia, Victoria, RN RN vg1 Carlotta Byers RN RN ld1 Mi Ramirez
--- NOTE | 2021-07-26 15:12 | EDPHYS ---
Physician Documentation [facility] Name: Jaja Pan Age: 71 yrs Sex: Female : 1950 Arrival Date: 07/26/2021 Time: 09:47 Bed 9 Private MD: AMBER Physician Ulises Stokes HPI: 07/26 13:16 This 71 yrs old Black Female presents to ER via Ambulatory with complaints of MEDICINE joesph REACTION, High Blood Pressure. 13:16 The patient has elevated blood pressure and discovered this at home, with a home joesph device. Onset: The symptoms/episode began/occurred 3 week(s) ago. Modifying factors: The symptoms are aggravated by activity, The symptoms are alleviated by remaining still. Associated signs and symptoms: The patient has no apparent associated signs or symptoms. Severity of symptoms: At its worst the blood pressure was mild, in the emergency department the blood pressure is unchanged. The patient has experienced similar episodes in the past, several times. Historical: - Allergies: 10:20 PENICILLINS; vg1 - Home Meds: 10:20 lisinopril 20 mg Oral tab 1 tab once daily [Active]; amlodipine 10 mg tab 1 tab once vg1 daily [Active]; Hydralazine Oral [Active]; atorvastatin 40 mg oral tab 2 tabs once daily [Active]; - PMHx: 10:20 Hypertensive disorder; Hypercholesterolemia; vg1 - PSHx: 10:20 None; vg1 - Immunization history:: Client reports receiving the 2nd dose of the Covid vaccine. - Social history:: Smoking status: Patient/guardian denies using tobacco. ROS: 13:17 Constitutional: Negative for fever, chills, and weight loss, Eyes: Negative for injury, joesph pain, redness, and discharge, ENT: Negative for injury, pain, and discharge, Neck: Negative for injury, pain, and swelling, Cardiovascular: Negative for chest pain, palpitations, and edema, Abdomen/GI: Negative for abdominal pain, nausea, vomiting, diarrhea, and constipation, Back: Negative for injury and pain, : Negative for injury, bleeding, discharge, and swelling, MS/Extremity: Negative for injury and deformity, Skin: Negative for injury, rash, and discoloration, Neuro: Negative for headache, weakness, numbness, tingling, and seizure, Psych: Negative for depression, anxiety, suicide ideation, homicidal ideation, and hallucinations, Allergy/Immunology: Negative for hives, rash, and allergies, Endocrine: Negative for neck swelling, polydipsia, polyuria, polyphagia, and marked weight changes, Hematologic/Lymphatic: Negative for swollen nodes, abnormal bleeding, and unusual bruising. 13:17 Respiratory: Positive for cough, with no reported sputum. Exam: 13:17 Constitutional: This is a well developed, well nourished patient who is awake, alert, joesph and in no acute distress. Head/Face: Normocephalic, atraumatic. Eyes: Pupils equal round and reactive to light, extra-ocular motions intact. Lids and lashes normal. Conjunctiva and sclera are non-icteric and not injected. Cornea within normal limits. Periorbital areas with no swelling, redness, or edema. ENT: Nares patent. No nasal discharge, no septal abnormalities noted. Tympanic membranes are normal and external auditory canals are clear. Oropharynx with no redness, swelling, or masses, exudates, or evidence of obstruction, uvula midline. Mucous membranes moist. Neck: Trachea midline, no thyromegaly or masses palpated, and no cervical lymphadenopathy. Supple, full range of motion without nuchal rigidity, or vertebral point tenderness. No Meningismus. Chest/axilla: Normal chest wall appearance and motion. Nontender with no deformity. No lesions are appreciated. Cardiovascular: Regular rate and rhythm with a normal S1 and S2. No gallops, murmurs, or rubs. Normal PMI, no JVD. No pulse deficits. Respiratory: Lungs have equal breath sounds bilaterally, clear to auscultation and percussion. No rales, rhonchi or wheezes noted. No increased work of breathing, no retractions or nasal flaring. Abdomen/GI: Soft, non-tender, with normal bowel sounds. No distension or tympany. No guarding or rebound. No evidence of tenderness throughout. Back: No spinal tenderness. No costovertebral tenderness. Full range of motion. Female : Normal external genitalia. Skin: Warm, dry with normal turgor. Normal color with no rashes, no lesions, and no evidence of cellulitis. MS/ Extremity: Pulses equal, no cyanosis. Neurovascular intact. Full, normal range of motion. Neuro: Awake and alert, GCS 15, oriented to person, place, time, and situation. Cranial nerves II-XII grossly intact. Motor strength 5/5 in all extremities. Sensory grossly intact. Cerebellar exam normal. Normal gait. Psych: Awake, alert, with orientation to person, place and time. Behavior, mood, and affect are within normal limits. 13:50 ECG was reviewed by the Attending Physician. joesph 14:47 Musculoskeletal/extremity: DVT Exam: No signs of deep vein thrombosis. no pain, no joesph swelling, no tenderness, negative Homans' sign noted on exam, no appreciated bluish discoloration, no erythema, no increased warmth. Vital Signs: 10:16 BP 145 / 88; Pulse 88; Resp 16; Temp 98.3; Pulse Ox 100% ; Weight 74.84 kg; Height 5 vg1 ft. 3 in. (160.02 cm); Pain 0/10; 14:20 BP 143 / 86; Pulse 89; Resp 17; Pulse Ox 100% on R/A; ld1 10:16 Body Mass Index 29.23 (74.84 kg, 160.02 cm) vg1 MDM: 12:07 Patient medically screened. joesph 13:18 Differential diagnosis: hypertensive crisis, Malignant HTN. Differential Diagnosis: joesph Bronchitis Influenza Upper Respiratory Infection Sinusitis Pharyngitis Allergic Rhinitis Asthma Exacerbation Viral Syndrome Pneumonia Tracheal Injury. Data reviewed: vital signs, nurses notes, lab test result(s), EKG, radiologic studies, plain films. 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 Test interpretation: by ED physician or midlevel provider: ECG, plain radiologic studies. Counseling: I had a detailed discussion with the patient and/or guardian regarding: the historical points, exam findings, and any diagnostic results supporting the discharge/admit diagnosis, lab results, radiology results, the need for outpatient follow up, for definitive care, a audio visual engineer, a family practitioner. 07/26 12:23 Order name: Basic Metabolic Panel; Complete Time: 15:11 [facility] 07/26 12:23 Order name: CBC with Diff; Complete Time: 14:43 [facility] 07/26 12:23 Order name: LFT's; Complete Time: 15:11 [facility] 07/26 12:23 Order name: Magnesium; Complete Time: 15:11 [facility] 07/26 12:23 Order name: NT PRO-BNP; Complete Time: 15:11 [facility] 07/26 12:23 Order name: PT-INR; Complete Time: 14:43 [facility] 07/26 12:23 Order name: Troponin HS; Complete Time: 15:11 [facility] 07/26 12:23 Order name: XRAY Chest (1 view); Complete Time: 14:09 [facility] 07/26 12:23 Order name: COVID-19/FLU A+B/RSV (Document "Date of Onset" if Symptomatic) [facility] 07/26 13:00 Order name: Urine Dipstick-Ancillary; Complete Time: 13:42 [facility] 07/26 12:23 Order name: EKG; Complete Time: 12:24 [facility] 07/26 12:23 Order name: Cardiac monitoring; Complete Time: 13:04 [facility] 07/26 12:23 Order name: EKG - Nurse/Tech; Complete Time: 13:04 [facility] 07/26 12:23 Order name: IV Saline Lock; Complete Time: 13:04 [facility] 07/26 12:23 Order name: Labs collected and sent; Complete Time: 13:04 [facility] 07/26 12:23 Order name: O2 Per Protocol; Complete Time: 12:31 [facility] 07/26 12:23 Order name: O2 Sat Monitoring; Complete Time: 12:31 [facility] 07/26 12:23 Order name: Urine Dipstick-Ancillary (obtain specimen); Complete Time: 13:04 [facility] 07/26 13:07 Order name: Labs - recollect needed: recollect blue top, fill to the line; Complete bd Time: 14:12 07/26 13:10 Order name: Labs - recollect needed: recollect green and lavender top; Complete Time: bd 14:12 EC:50 Rate is 88 beats/min. Rhythm is regular. QRS [place] is Normal. TX interval is normal. QRS joesph interval is normal. QT interval is normal. No Q waves. T waves are Normal. No ST changes noted. Clinical impression: NSR w/ Non-specific ST/T Changes and No evidence of ischemia. Interpreted by me. Reviewed by me. Administered Medications: 13:04 Drug: NS 0.9% 1000 ml Route: IV; Rate: 125 ml/hr; Site: left antecubital; ld1 14:20 Drug: Rocephin (cefTRIAXone) 1 grams Route: IV; Rate: per protocol; Site: left ld1 antecubital; 14:20 Follow up: Response: No adverse reaction ld1 15:24 Drug: Potassium Effervescent Tablet 25 mEq Route: PO; ld1 15:24 Follow up: Response: No adverse reaction ld1 Disposition Summary: 07/26/21 15:12 Discharge Ordered Location: Home joesph Problem: new joesph Symptoms: have improved joesph Condition: Stable joesph Diagnosis - Cough joesph - Essential (primary) hypertension joesph - Adverse effect of mdfxhcfoaxz-fcnflgukcq-gqwyda inhibitors joesph - UTI/ Urinary tract infection, site not specified joesph - Hypokalemia joesph Followup: joesph - With: Private Physician - When: 2 - 3 days - Reason: Recheck today's complaints, Continuance of care, Re-evaluation by your physician Followup: joesph - With: - When: 2 - 3 days - Reason: Recheck today's complaints, Continuance of care, Re-evaluation by your physician Discharge Instructions: - Discharge Summary Sheet joesph - Hypertension, Adult joesph - Hypertension, Adult, [id number] joesph - Cough, Adult, [id number]-[id number] joesph - Urinary Tract Infection, Adult joesph - Urinary Tract Infection, Adult, [id number] joesph - How to Take Your Blood Pressure, [id number]-[id number] joesph - Aspirin and Your Heart joesph - Cough, Adult joesph - Allergies, Adult, Ggco-fp-[id number] joesph - Managing Your Hypertension joesph Forms: - Medication Reconciliation Form joesph - Thank You Letter joesph - Antibiotic Education joesph - Prescription Opioid Use joesph Prescriptions: - Cipro 250 mg Oral Tablet - take 1 tablet by ORAL route every 12 hours; 14 tablet; Refills: 0, Product joesph Selection Permitted Signatures: Dispatcher [employer] Rebecca Ponce Corey, MD MD cha Garcia, Victoria RN RN vg1 Carlotta Byers RN RN ld1
[2021-07-26] MEDS ORDERED: POTASSIUM 25 MEQ EFFERV TAB ONE (15:19)
[2021-07-26 15:34] VITALS: TEMP 98.3; O2SAT 100
[2021-07-26 15:36] VITALS: BP 143/86
[2021-07-26 16:12] LABS: SARS-COV-2 RT PCR NEGATIVE (NEGATIVE)
--- NOTE | 2021-07-28 07:29 | EKG ---
Test Date: 2021-07-26 Test Time: 12:44:15 Mash Filter Operator: VLAD MEASUREMENT RESULTS: Intervals: Rate: 88 NJ: 184 QRSD: 78 QT: 356 QTc: 430 Braymer: P: 73 NJ: 184 QRS: 65 T: 40 INTERPRETIVE STATEMENTS: Normal sinus rhythm Possible Left atrial enlargement ST abnormality, possible digitalis effect Abnormal ECG Compared to ECG 04/11/2021 16:12:39 ST (T wave) deviation now present Left ventricular hypertrophy no longer present Electronically Signed On 07-28-21 07:26:28 VALLEZ FILTER OPERATOR by Theodore Patircia
== END 2021-07-26 15:24 | disposition home or self-care (01) ==
LOC: ER 09:43
DX: I10 Essential (primary) hypertension (principal); T46.4X5A Adverse effect of angiotensin-converting-enzyme inhibitors, initial encounter; N39.0 Urinary tract infection, site not specified; E87.6 Hypokalemia; Z88.0 Allergy status to penicillin; Z20.822 Contact with and (suspected) exposure to COVID-19
CPT/HCPCS: 93005; 85025; 80048; 36415; 83735; 85610; 80076; 81003; 84484; 83880; 0241U; 71045; J7030; 96374; 99284

== ENCOUNTER 2022-03-09 13:10 | Emergency (ER) | payer OTHER ==
--- OUTSIDE RECORDS SUMMARY | 2022-03-09 13:15 | XMS REPORT | Continuity of Care Document ---
:1950 Author Organization [facility] t Address [address] [place] [address] [address]. [address] [place] [address] Care Team Providers Name Role Phone Sergey Matthews MD Attending Clinician ALYSA PEREZ Attending Clinician Unavailable Logan SMALL, Mo Rodriguez Attending Clinician Alden SMALL, Leo Menendez Attending Clinician [phone] Alysa Perez MD Attending Clinician [phone] Jenny SMALL, Provider Not In Attending Clinician Unavailable MO FORD Attending Clinician Unavailable LEO RUANO Admitting Clinician Unavailable Payers Payer Name Policy Type Policy Number Effective Date Expiration Date [facility] MEDIC[facility] [id number] 2019 ADV 00:00:00 Problems Condition Condition Condition Status Onset Resolution Last Treating Co mments Source Name Details Category Date Date Treatment Clinician Date Cerebrovas Cerebrovas Disease Active 2020-[address] cular cular 0-03 [facility] accident accident 00:00: Medica l (CVA) 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 Acute Acute Disease Active 2020-[address] [facility] right-side right-side 0-03 Christina kes d weakness d weakness 00:00: Me dical 00 Center Hypertensi Hypertensi Disease Active 2020-[address] ve ve 0-03 [facility] emergency emergency 00:00: Medi babak 00 Center Poorly-con Poorly-con Disease Active 2020-[address] trolled trolled 0-03 [facility] hypertensi hypertensi 00:00: Me dical on on Center Allergies, Adverse Reactions, Alerts Allergy Allergy Status Severity Reaction(s) Onset Inactive Treating Comm ents Source Name Type Date Date Clinician PENICILL Allergy Active High Hives 2020-[address] [facility] [place] 0-03 [facility] 00:[facility]: Medical 00 Center Penicill Propensi Active Hives, Rash 2020-[address] in ty to 0-03 [facility] adverse 00:00: Medical reaction 00 Center s NO KNOWN Allergy Active [facility] Family History Family Member Diagnosis Comments Start Date Stop Date Source Natural father No Known Problem [facility] Natural mother No Known Problem [facility] Social History Social Habit Start Date Stop Date Quantity Comments Source Cigarettes smoked 2021-04-11 2021-04-11 [facility] current (pack per 00:00:00 00:00:00 Medical Center day) - Reported Tobacco use and 2021-04-11 2021-04-11 Never used [facility] exposure 00:00:00 00:00:00 [facility] Sex Ass[birth year] [facility] 00:00:00 00:00:00 [facility] Smoking Status Start Date Stop Date Source Tobacco [facility] Current every day smoker 2021-04-11 00:00:00 [facility] Medications Ordered Filled Start Stop Current Ordering Indication Dosage Frequency Signature Comments Components Source Medication Medication Date Date Medication? Clinician (SIG) Name Name amLODIPine 2020-07 No 10mg QD Take [address] [facility] (NORVASC) 0-08 10-08 tablet (10 Murtaza es 10 MG 00:00: 23:59 mg total) Medica l tablet 00 :00 by mouth Center daily. aspirin 81 2020-07 No 81mg QD Take [address] [facility] MG chewable 0-08 10-08 tablet (81 L ukes tablet 00:00: 23:59 mg total) Medic al 00 :00 by mouth Center daily. cyanocobala 2020-07 No 1000ug QD Take [address] min, 0-08 10-08 tablet [facility] vitamin 00:00: 23:59 (1,000 mcg Med ical B-12, 1000 00 :00 total) by Cent er MCG tablet mouth daily. atorvastati 2020-07 No 80mg QD Take [address] [facility] n (LIPITOR) 0-07 10-07 tablet (80 L ukes 80 MG 00:00: 23:59 mg total) Medica l tablet 00 :00 by mouth Center nightly. hydrALAZINE 2020-07 50mg Take [address] [facility] [address] (APRESOLINE 04-15 tablet (50 L ukes ) 50 MG 00:00: 23:59 mg total) Medi babak tablet 00 :00 by mouth Center every 8 (eight) hours. Vital Signs Vital Name Observation Time Observation Value Comments Source Systolic blood 2021-04-15 16:10:00 161 mm[Hg] [facility] Diastolic blood 2021-04-15 16:10:00 86 mm[Hg] [facility] Heart rate 2021-04-15 16:10:00 83 /min [facility] Body temperature 2021-04-15 16:10:00 36.11 Allyssa [facility] Respiratory rate 2021-04-15 16:10:00 18 /min [facility] Oxygen saturation in 2021-04-15 16:10:00 95 /min [facility] Arterial blood by Medical Ce nter Pulse oximetry Body height 2021-04-12 00:43:00 162.6 cm [facility] Body weight 2021-04-12 00:43:00 92.08 kg [facility] BMI 2021-04-12 00:43:00 34.84 kg/m2 [facility] Procedures Procedure Date / Time Performed Performing Clinician Sour e EKG-REHAB 2021-04-16 17:42:21 System, [facility] 2021-04-16 17:42:21 [facility], [facility] CBC (HEMOGRAM ONLY) 2021-04-15 04:29:00 Leo Ruano [facility] PHOSPHORUS 2021-04-15 04:29:[address] [facility] MAGNESIUM 2021-04-15 04:29:00 [facility] ([facility] & 2021-04-14 12:25:00 Alysa Perez [facility] REF LABS) [facility] CBC (HEMOGRAM ONLY) 2021-04-14 04:19:00 [facility] BASIC METABOLIC PANEL (7) 2021-04-14 04:19:00 [facility] PHOSPHORUS 2021-04-14 04:19:00 [facility] MAGNESIUM 2021-04-14 04:19:00 [facility] CBC (HEMOGRAM ONLY) 2021-04-13 04:44:00 [facility] BASIC METABOLIC PANEL (7) 2021-04-13 04:44:00 [facility] PHOSPHORUS 2021-04-13 04:44:00 [facility] MAGNESIUM 2021-04-13 04:44:00 [facility] 2D ECHO W/ DOPPLER 2021-04-12 11:06:29 Sharon Pulliam [facility] (CW/PW/COLOR) [facility] MR BRAIN WITHOUT IV 2021-04-12 08:23:00 [facility] HC LAB HIV-1 AG W/HIV-1&2 2021-04-12 00:42:00 Sharon Pulliam [facility] RPR 2021-04-12 00:42:00 Sharon Pulliam [facility] CBC W/PLT COUNT & AUTO 2021-04-11 23:17[facility] COMPREHENSIVE METABOLIC 2021-04-11 23:17:00 AldenLeo [facility] MAGNESIUM 2021-04-11 23:17:00 [facility] PHOSPHORUS 2021-04-11 23:17:00 [facility] PROTHROMBIN TIME/INR 2021-04-11 23:17:00 Leo Ruano [facility] VITAMIN B12 AND FOLATE 2021-04-11 23:17:00 Leo Ruano [facility] HEMOGLOBIN A1C 2021-04-11 23:17:[address] [facility] LIPID PANEL 2021-04-11 23:17:00 [facility] TSH/FREE T4 IF INDICATED 2021-04-11 23:17:[address] [facility] CBC W/PLT COUNT & AUTO 2021-04-11 23:17:00 AldenLeo [facility] EKG-SCANNED 2021-04-11 00:00:00 ProviderLive [facility] Plan of Care Planned Activity Planned Date Details Comments Source Future Scheduled 2022-03-10 INFLUENZA VACCINE (#1) [facility] 00:00:00 [code = INFLUENZA Medical Ce nter VACCINE (#1)] Future Scheduled 2021-07-10 FALLS RISK SCREENING [facility] Test 00:00:00 [code = FALLS RISK Medical C enter SCREENING] Future Scheduled 2021-07-[address] [facility] Test 00:00:00 (12+) [code = Medical Center DEPRESSION SCREENING (12+)] Future Scheduled 2020-07-[address] [facility] Test 00:00:00 WELLNESS (YEAR 2 or Medical Center FIRST YEAR if no IPPE) [code = MEDICARE ANNUAL WELLNESS (YEAR 2 or FIRST YEAR if no IPPE)] Future Scheduled 2002 SHINGLES VACCINES ([address] [facility] Test 00:00:00 2) [code = SHINGLES Medical Center VACCINES (1 of 2)] Future Scheduled 1971 DTAP/TDAP/TD VACCINES [facility] Test 00:00:00 (1 - Tdap) [code = Medical C enter DTAP/TDAP/TD VACCINES (1 - Tdap)] Future Scheduled 1970 HEPATITIS C SCREENING [facility] Test 00:00:00 [code = HEPATITIS C Medical Center SCREENING] Future Scheduled 1958 PNEUMOCOCCAL 65+ YRS ([address] [facility] Test 00:00:00 - PCV) [code = Medical Cente r PNEUMOCOCCAL 65+ YRS (1 - PCV)] Future Scheduled 1952 COVID-19 VACCINE (#1) [facility] Test 00:00:00 [code = COVID-[address] VACCINE (#1)] Future Scheduled 1952 Screening for malignant [facility] Test 00:00:00 neoplasm of breast Medical C enter (procedure) [code = 236445242] Future Scheduled 1952 CT Colonography (combo) [facility] Test 00:00:00 [code = CT Colonography [facility] (combo)] Future Scheduled 1952 Screening for malignant [facility] Test 00:00:00 neoplasm of colon Medical Ce nter (procedure) [code = 393671547] Future Scheduled 1952 Screening for malignant [facility] Test 00:00:00 neoplasm of colon Medical Ce nter (procedure) [code = 918085126] Future Scheduled 1950 DXA SCAN [code = DXA [facility] Test 00:00:00 SCAN] Medical Center Future Scheduled 1952 Screening for malignant [facility] Test 00:00:00 neoplasm of colon Medical Ce nter (procedure) [code = 593994833] Future Scheduled 1952 Screening for malignant [facility] Test 00:00:00 neoplasm of colon Medical Ce nter (procedure) [code = 981742398] Future Scheduled 1950 Sigmoidoscopy [code = [facility] Test 00:00:00 Sigmoidoscopy] Medical Cente r Encounters Start End Encounter Admission Attending Care Care Encounter Source Date/Time Date/Time Type Type Clinicians Facility Department ID 2021-04-28 2021-04-28 EXT [facility] IP Cassie, EXT MSRDP [id number] [place] 00:00:00 00:00:00 [facility] [id number] H [facility] [id number] 2021-04-28 2021-04-28 EXT [facility] IP Cassie, EXT MSRDP [id number] [place] 00:00:00 00:00:00 Sergey [id number] [facility] [id number] 2021-04-11 2021-04-15 Inpatient ER [facility] [id number] [facility] 22:27:00 18:05:00 [facility] 2021-04-11 2021-04-15 [facility] Mo Ford [facility] [id number] [facility] 22:27:00 18:05:00 Encounter Leo Ruano [facility] 2021-04-15 2021-04-15 Orders System, EXT MSRDP [id number] [place] 00:00:00 00:00:00 Only Provider LOCATION [id number] Health Not In [id number] 2021-04-15 2021-04-15 Orders System, EXT MSRDP [id number] [place] 00:00:00 00:00:00 Only Provider LOCATION [id number] Health Not In [id number] Results Test Description Test Time Test Comments Results Result Comments Source Magnesium 2021-04-15 05:34:37 Test Item Value Reference Range Interpretation Comme nts Magnesium (test code = 54734-7) 2.1 mg/dL 1.6-2.6 MICHAEL (test code = MICHAEL) Veterinary Dentist ID - CORNELIA M Lab Interpretation (test code = 24675-4) Normal [facility]07 05:34:37 Test Item Value Reference Range Interpretation Comments Phosphorus (test code = 3.4 mg/dL 2.3-4.7 2777-1) MCIHAEL (test code = MICHAEL) Veterinary Dentist ID - CORNELIA M Lab Interpretation (test Normal code = 63670-6) [facility]2021-10-07 05:34:37 Test Item Value Reference Range Interpretation Comments MAGNESIUM (BEAKER) (test code = 2.1 mg/dL 1.6-2.6 627) Veterinary Dentist ID - CORNELIA [id number] 05:34:37 Test Item Value Reference Range Interpretation Comments PHOSPHORUS (BEAKER) (test code = 3.4 mg/dL 2.3-4.7 604) Veterinary Dentist ID - CORNELIA MCBC (Hemogram only)2021-04-15 05:04:04 Test Item Value Reference Range Interpretation Comments WBC (test code = 6690-2) 7.0 See_Comment [A utomated message] The system [employer] generated this result transmitted ref erence range: 3.5 - 10 .5 K/L. The refe rence range was not u sed to interpret this result as normal/abnor mal. RBC (test code = 789-8) 4.54 See_Comment [Au tomated message] The system [employer] generated this result transmitted ref erence range: 3.93 - 5 .22 M/L. The refe rence range was not u sed to interpret this result as normal/abnor mal. MCHC (test code = 786-4) 32.3 See_Comment [A utomated message] The system [employer] generated this result transmitted ref erence range: 32.2 - 3 5.5 GM/DL. The refe rence range was not u sed to interpret this result as normal/abnor mal. Hematocrit (test code = 38.7 % 34.1-44.9 4544-3) MCV (test code = 787-2) 85.2 fL 79.4-94.8 MCH (test code = 785-6) 27.5 pg 25.6-32.2 RDW (test code = 788-0) 13.7 % 11.7-14.4 Platelets (test code = 361 See_Comment [Aut omated message] 467-3) The system [employer] generated this result transmitted ref erence range: 150 - 45 0 K/CU MM. The referen ce range was not u sed to interpret this result as normal/abnor mal. MPV (test code = 80401-8) 9.4 fL 9.4-12.3 nRBC (test code = 413) 0 See_Comment [Aut omated message] The system [employer] generated this result transmitted ref erence range: 0 - 0 /1 00 WBC. The refere nce range was not u sed to interpret this result as normal/abnor mal. Lab Interpretation (test Normal code = 03800-2) [facility]2021-04-15 05:04:04 Test Item Value Reference [...] WBC 0-0 (BEAKER) (test code = 413) SARS-CoV2/RT-PCR (Asymptomatic ONLY)2021-04-14 21:39:57 Test Item Value Reference Range Interpretation Comments SARS-COV2/RT-PCR (test Negative Negative code = 03951-9) MICHAEL (test code = MICHAEL) Negative result for this test determines that [...] be considered in cases of suspected false negatives. The limit of detection for this assay is 100 copies/mL. This SARS-CoV-2 test is a real-time RT_PCR test intended for the qualitative detection of nucleic acid from SARS-CoV-2 in a nasopharyngeal swab specimen collected from individuals suspected of COVID-19 by their healthcare provider. This test has not been Food and Drug Administration (FDA) cleared or approved. This is a modified version of an approved Emergency Use Authorization (EUA) and is in the process of review by the FDA. Once authorized by the FDA, the issued EUA will be effective until the declaration that circumstances exist justifying the authorization of the emergency use of in vitro diagnostic tests for detection and/or diagnosis of COVID-19 is terminated under Section 564(b)(2) of the Act or the EUA is revoked under Section 564(g) of the Act. Testing was performed using the Diaz SARS-CoV-2 assay. Fact Sheet for Healthcare Providers:https://www.dorothy connelly/chayo/RT SARS-CoV-2 HCP Fact Sheet 51-495191.pdf Fact Sheet for Healthcare Patients:https://www.pat carter/chayo/RT SARS-CoV-2 Patient Fact Sheet EN 51-795639U7.pdf Lab Interpretation Normal (test code = 71819-1) [facility])2021-04-14 21:39:57 Test Item Value Reference Range Interpretation Comments SARS-COV2/RT-PCR (test code = Negative Negative 1359195) Negative result for this test determines that [...] the FDA, the issued EUA will be effective until the declaration that circumstances exist justifying the authorization of the emergency use of in vitro diagnostic tests for detection and/or diagnosis of COVID-19 is terminated under Section 564(b)(2) of the Act or the EUA is revoked under Section 564(g) of the Act.Testing was performed using Ka[employer]ena SARS-CoV-2 assay.Fact Sheet for Healthcare Providers:https://www.[employer]/chayo/RT SARS-CoV-2 HCP Fact Sheet 51- 672475.pdfFact Sheet for Healthcare Patients:https://www.[employer]/chayo/RT SARS-CoV-2 Patient Fact Sheet EN 51-644637B1.[id number] 05:18:03 Test Item Value Reference Range Interpretation Comments PHOSPHORUS (BEAKER) (test code = 3.5 mg/dL 2.3-4.7 604) Veterinary Dentist ID - jrlBasic Metabolic [id number] 05:18:02 Test Item Value Reference Range Interpretation Comments Sodium (test code = 140 meq/L 824-510 2929-2) Potassium (test 3.8 meq/L 3.5-5.1 code = 2823-3) Chloride (test code 106 meq/L 98-107 = 2075-0) CO2 (test code = 27 meq/L 22-29 8-9) BUN (test code = 16 mg/dL 7-21 3094-0) Creatinine (test 1.01 mg/dL 0.57-1.25 code = 2160-0) Glucose (test code 104 mg/dL 70-105 = 2345-7) Calcium (test code 9.3 mg/dL 8.4-10.2 = 49536-4) EGFR (test code = 66 mL/min/1.73 [place] [address]-6) NOT ACCURATE CREATININE CLEARANCE IN PREDICTING GLOMERULAR FILTRATION RATE . ESTIMATED GFR I S NOT APPLICABLE FOR DIALYSIS PATIEN TS. MICHAEL (test code = Veterinary Dentist ID - MICHAEL) jrl [facility] METABOLIC [id number] 05:18:02 Test Item Value Reference Range Interpretation [...] S NOT APPLICABLE FOR DIALYSIS PATIEN TS. Veterinary Dentist ID - [id number] 05:18:02 Test Item Value Reference Range Interpretation Comments MAGNESIUM (BEAKER) (test code = 2.1 mg/dL 1.6-2.6 627) Veterinary Dentist ID - jrlCBC (HEMOGRAM ONLY)2021-04-14 04:54:47 Test [...] WBC 0-0 (BEAKER) (test code = 413) [id number] 05:58:09 Test Item Value Reference Range Interpretation Comments PHOSPHORUS (BEAKER) (test code = 3.8 mg/dL 2.3-4.7 604) Veterinary Dentist ID - JRLBASIC METABOLIC [id number] 05:58:08 Test Item Value Reference Range Interpretation [...] S NOT APPLICABLE FOR DIALYSIS PATIEN TS. Veterinary Dentist ID - [id number] 05:58:08 Test Item Value Reference Range Interpretation Comments MAGNESIUM (BEAKER) (test code = 2.0 mg/dL 1.6-2.6 627) Veterinary Dentist ID - JRLCBC (HEMOGRAM ONLY)2021-04-13 05:32:46 Test [...] WBC 0-0 (BEAKER) (test code = 413) 2D Echo W/Doppler(CW/PW/Color)2021-04-12 13:40:37 Test Item Value Reference Interpretation Comments Range Ejection sessment is normal (>60% Fraction (test code = 2574) Radiology Study observation (narrative) (test code = 22806-5) PXN (test code = Britton Gasca MD - PXN) 04/12/2021 Transthoracic Echocardiography Report (TTE) Demographics Patient Name ANGEL PULIDO Date of Study 04/12/2021 DOVER Gender Female Visit Number [id number] Race Black Room Number 918 Number Date of 1950 Referring Leo Menendez Physician MD Alden Age 71 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 Amount - 2 mlHeight: 64 inches Weight: 92.08 kg (203 lbs) BSA: 1.97 m^2 BMI: 34.84 kg/m^2HR: 58 bpm BP: 141/71 mmHg Summary IV saline contrast injection was negative for a PFO (patent foramen ovale) at rest and post Valsalva . The left ventricle is chamber size (by PSLAX dimension) is normal (female - LVIDd 3.8-5.2cm) . Mild septal hypertrophy is present. All of the LV segments contract normally . Estimated LVEF by qualitative assessment is normal (>60%) . Grade 1 diastolic dysfunction (impaired relaxation and low-normal LA pressure). Unable to estimate peak systolic PA pressure; inadequate TR velocity signal. Signature Findings Left The left ventricle is chamber size (by PSLAX dimension) is Ventricle normal (female - LVIDd 3.8-5.2cm) . Mild septal hypertrophy is present. All of the LV segments contract normally . Estimated LVEF by qualitative assessment is normal (>60%) . Grade 1 diastolic dysfunction (impaired relaxation and low-normal LA pressure). Left Atrium LA size is mildly enlarged (35-41 ml/m2) . Right The right ventricular chamber size and systolic function are Ventricle within normal limits. Right Atrium RA size is mildly dilated. Atrial IV saline contrast injection was negative for a PFO (patent Septum foramen ovale) at rest and post Valsalva . Aortic Valve Normal AoV structure. Mitral Valve Mild mitral annular calcification. Mild MV leaflet thickening. Tricuspid TV structure is normal. Valve Unable to estimate peak systolic PA pressure; inadequate TR velocity signal. Pulmonic PV is not well visualized; function appears normal by Doppler Valve visualized. Pericardium No pericardial effusion is visualized. Chambers/Structures Left Atrium LA Dimension: 3.65 cm LA Area: 20.19 cm^2 LA Volume: 72 ml LA Vol. Index: 37 ml/m^2 Left Ventricle LVIDd: 4.77 cm LVEDV:88.85 ml LVIDs: 3.18 cm LV Septum Diastolic: 1.21 cm LV PW Diastolic: 1.13 cm LV Length: 8.87 cm LVEDV Carey's:141.77 ml LV FS: 33.3 % LVESV Carey's:42.89 ml LVEF Carey's: 69.8 % LVEDVI: 72 ml/m^2 LVESVI: 22 ml/m^2 LVOT Diameter: 1.9 cm Right Ventricle RVOT VTI: 27.41 cm Aorta Ao Root S of Nidhi.: 2.87 cm Doppler/Quantitative Measurements Mitral Valve MV Peak E-Wave: 0.8 m/s MV Peak A-Wave: 0.99 m/s E/A Ratio: 0.81 Peak Gradient: 2.57 mmHg Deceleration Time: 351.1 msec MV Ish. Peak: Aortic Valve Peak Velocity: 1.66 m/s Mean Velocity: 1.13 m/s Peak Gradient: 11.06 mmHg Mean Gradient: 5.72 mmHg AV Area (continuity): 2.25 cm^2 AV VTI: 37.35 cm AV DVI: 0.79 LVOT Peak Velocity: 1.34 m/s Peak Gradient: 7.17 mmHg Mean Velocity: 0.97 m/s Mean Gradient: 4.18 mmHg LVOT Diameter: 1.9 cm LVOT VTI: 29.66 cm LVOT Area: 2.84 cm^2 LVOT SV:84.05 ml LVOT CO: 4.88 l/min LVOT CI: 2.48 l/min/m^2 [facility] 13:13:00 Test Item Value Reference Range Interpretation Comments RPR (test code = 93471-4) Nonreactive Nonreactive Lab Interpretation (test code = Normal 54657-6) [facility] 13:13:00 Test Item Value Reference Range Interpretation Comments RPR SCREEN (BEAKER) (test code = Nonreactive Nonreactive 420) Hemoglobin [id number] 11:58:16 Test Item Value Reference Range Interpretation Comments Hemoglobin A1C (test code = 4548-4) 4.3 % 4.3-6.1 Lab Interpretation (test code = Normal 06388-8) [facility] [id number] 11:58:16 Test Item Value Reference Range Interpretation Comments HEMOGLOBIN A1C (BEAKER) (test code = 4.3 % 4.3-6.1 368) MR, BRAIN, WITHOUT [id number] 08:33:00Unlisted Reason for Exam - Click Yes and Enter Reason Below->No [facility] : 1950 Sex: FFINAL REPORT [...] ganglia/external capsule infarct. Signed: JR Samaniego Robert MDReport Verified Date/Time: 04/12/2021 08:33:48 Reading Location: [facility] C013V Neuro Reading Room Vitamin B12 and [id number] 03:25:46 Test Item Value Reference Range Interpretation Comments Vitamin B12 (test 209 pg/mL 213-816 L code = 2132-9) Folate (test code = >40.00 See_Comment [Automa drew 2284-8) message] The system which generated this result transmitted reference range : >=7.00 ng/mL. T he reference range was not used to interpret this result as normal/abnormal . MICHAEL (test code = MICHAEL) Veterinary Dentist ID - PRIYA GUDINOperator ID - PRIYA W Lab Interpretation Abnormal (test code = 48064-1) [facility]IT[facility] B12 AND [id number] 03:25:46 Test Item Value Reference Range Interpretation Comments VITAMIN B12 (BEAKER) 209 pg/mL 213-816 L (test code = 774) FOLATE (BEAKER) > ng/mL See_Comment [Automated message] The (test code = 362) system [facility] generated this result tra nsmitted reference range : >=7.00. The reference r rodolfo was not used to int erpret this result as normal/abnormal . Veterinary Dentist ID - PRIYA GUDINOperator ID - PRIYA WHIV-1 Antigen with HIV-1/2 Antibody 2021-04-12 01:40:58 Test Item Value Reference Range Interpretation Comments HIV-1 Antigen with HIV 1&2 Nonreactive Nonreactive Antibody (test code = 01914-9) MICHAEL (test code = MICHAEL) Veterinary Dentist ID - DB Lab Interpretation (test Normal code = 52553-5) [facility] ANTIGEN WITH HIV-1/2 [id number] 01:40:58 Test Item Value Reference Range Interpretation Comments HIV-1 ANTIGEN WITH HIV 1\T\2 Nonreactive Nonreactive ANTIBODY (2) (BEAKER) (test code = 2586) Veterinary Dentist ID - DBTSH/Free T4 If [id number] 00:13:23 Test Item Value Reference Range Interpretation Comments TSH (test code = 1.717 See_Comment [Automated 17014-4) message] The system which generated this result transmit drew reference range : 0.350 - 4.940 uIU/mL. The reference range was not used to interpret this result as normal/abnormal . MICHAEL (test code = MICHAEL) Veterinary Dentist ID - DB Lab Interpretation Normal (test code = 74885-0) [facility] T4 IF [id number] 00:13:23 Test Item Value Reference Range Interpretation Comments THYROID STIMULATING HORMONE 1.717 uIU/mL 0.350-4.940 (BEAKER) (test code = 772) Veterinary Dentist ID - DBComprehensive metabolic [id number] 23:52:24 Test Item Value Reference Range Interpretation Comments Protein, Total (test 9.0 See_Comment H [Autom ated code = 2885-2) message] The system which generated this result transmitted reference range : 6.0 - 8.3 gm/dL . The reference range was not used to interpr et this result as normal/abnormal . Albumin (test code = 3.9 g/dL 3.5-5.0 28292-4) Alkaline Phosphatase 63 U/L 40-150 (test code = 6768-6) Total Bilirubin (test 1.9 mg/dL 0.2-1.2 H code = 1975-2) Sodium (test code = 138 meq/L 785-184 4078-2) Potassium (test code 3.6 meq/L 3.5-5.1 = 2823-3) Chloride (test code = 102 meq/L 98-107 2075-0) CO2 (test code = 27 meq/L 22-29 8-9) BUN (test code = 13 mg/dL 7-21 3094-0) Creatinine (test code 1.18 mg/dL 0.57-1.25 = 2160-0) Glucose (test code = 96 mg/dL 70-105 2345-7) Calcium (test code = 9.7 mg/dL 8.4-10.2 54109-6) AST (test code = 18 U/L 5-34 1920-8) ALT (test code = 8 U/L 6-55 1742-6) EGFR (test code = 55 mL/min/1.73 [place] [address]-7) m NOT ACCURATE CREATININE CLEARANCE IN PREDICTING GLOMERULAR FILTRATION RATE . ESTIMATED GFR I S NOT APPLICABLE FOR DIALYSIS PATIENTS. MICHAEL (test code = MICHAEL) Veterinary Dentist ID - DBSpecimen slightly icteric Lab Interpretation Abnormal (test code = 07525-7) [facility] CenterLipid [id number] 23:52:24 Test Item Value Reference Range Interpretation Comments Triglycerides (test 83 mg/dL code = 2571-8) Cholesterol (test code 193 mg/dL = 2093-3) HDL (test code = 49 mg/dL 5-9) LDL Calculated (test 127 mg/dL code = 53845-8) MICHAEL (test code = MICHAEL) Triglyceride Reference Range: Low Risk <150 Borderline 150-199 High Risk 200-499 Very High Risk >=500 Cholesterol Reference Range: Low Risk <200 Borderline 200-239 High Risk >240 HDL Cholesterol Reference Range: Low Risk >=60 High Risk <40 LDL Cholesterol Reference Range: Optimal <100 Near Optimal 100-129 Borderline 130-159 High 160-189 Very High >=190 Veterinary Dentist ID - DBSpecimen slightly icteric [facility] CenterCOMPREHENSIVE METABOLIC [id number] 23:52:24 Test Item Value Reference Range Interpretation [...] S NOT APPLICABLE FOR DIALYSIS PATIEN TS. Veterinary Dentist ID - DBSpecimen slightly ictericLIPID [id number] 23:52:24 Test Item Value Reference Range Interpretation Comments TRIGLYCERIDES (BEAKER) (test code = 83 mg/dL 540) CHOLESTEROL (BEAKER) (test code = 193 mg/dL 631) HDL CHOLESTEROL (BEAKER) (test code 49 mg/dL = 976) LDL CHOLESTEROL CALCULATED (BEAKER) 127 mg/dL (test code = 633) Triglyceride Reference Range: Low Risk <150 Borderline 150-199 High Risk 200- 499 Very High Risk >=500Cholesterol Reference Range: Low Risk <200 Borderline 200-239 High Risk >240HDL Cholesterol Reference Range: Low Risk >=60 High Risk <40LDL Cholesterol Reference Range: Optimal <100 Near Optimal 100-129 Borderline 130-159 High 160-189 Very High >=190 Veterinary Dentist ID - DBSpecimen slightly [id number] 23:52:23 Test Item Value Reference Range Interpretation Comments MAGNESIUM (BEAKER) (test code = 1.9 mg/dL 1.6-2.6 627) Veterinary Dentist ID - [id number] 23:52:23 Test Item Value Reference Range Interpretation Comments PHOSPHORUS (BEAKER) (test code = 3.2 mg/dL 2.3-4.7 604) Veterinary Dentist ID - DBProthrombin time/[id number] 23:43:21 Test Item Value Reference Interpretation Comments Range Protime (test code = 14.2 See_Comment [Autom ated 5902-2) message] The system which generated this result transmitted reference range : 11.9 - 14.2 seconds. The reference range was not used to interpret this result as normal/abnormal . INR (test code = 1.12 See_Comment [Automated 6301-6) message] The system which generated this result transmitted reference range : <=5.90. The reference range was not used to interpret this result as normal/abnormal . MICHAEL (test code = RECOMMENDED MICHAEL) COUMADIN/WARFARIN INR THERAPY RANGESSTANDARD DOSE: 2.0 - 3.0 Includes: PROPHYLAXIS for venous thrombosis, systemic embolization; TREATMENT for venous thrombosis and/or pulmonary embolus.HIGH RISK: Target INR is 2.5-3.5 for patients with mechanical heart valves. Lab Interpretation Normal (test code = 76791-5) [facility] CenterPROTHROMBIN TIME/[id number] 23:43:21 Test Item Value Reference Range Interpretation Comments PROTIME (BEAKER) 14.2 seconds 11.9-14.2 (test code = 759) INR (BEAKER) (test 1.12 See_Comment [Automat ed message] code = 370) The system [employer] generated this result transmitted ref erence range: <=5.90. The reference range was not used to int erpret this result as normal/abnormal . RECOMMENDED COUMADIN/WARFARIN INR THERAPY RANGESSTANDARD DOSE: 2.0 - 3.0 Includes: PROPHYLAXIS for venous thrombosis, systemic embolization; TREATMENT for venous thrombosis and/or pulmonary embolus.HIGH RISK: Target INR is 2.5-3.5 for patients with mechanical heart valves.CBC with platelet count + automated [id number] 23:29:59 Test Item Value Reference Range Interpretation Comments WBC (test code = 6690-2) 9.1 See_Comment [A utomated message] The system [employer] generated this result transmitted ref erence range: 3.5 - 10 .5 K/L. The refe rence range was not u sed to interpret this result as normal/abnor mal. RBC (test code = 789-8) 4.25 See_Comment [Au tomated message] The system [employer] generated this result transmitted ref erence range: 3.93 - 5 .22 M/L. The refe rence range was not u sed to interpret this result as normal/abnor mal. MCHC (test code = 786-4) 34.5 See_Comment [A utomated message] The system [employer] generated this result transmitted ref erence range: 32.2 - 3 5.5 GM/DL. The refe rence range was not u sed to interpret this result as normal/abnor mal. Hematocrit (test code = 34.5 % 34.1-44.9 4544-3) MCV (test code = 787-2) 81.2 fL 79.4-94.8 MCH (test code = 785-6) 28.0 pg 25.6-32.2 RDW (test code = 788-0) 13.5 % 11.7-14.4 Platelets (test code = 395 See_Comment [Aut omated message] 777-3) The system [employer] generated this result transmitted ref erence range: 150 - 45 0 K/CU MM. The referen ce range was not u sed to interpret this result as normal/abnor mal. MPV (test code = 9.3 fL 9.4-12.3 L 83587-6) nRBC (test code = 413) 0 See_Comment [Aut omated message] The system [employer] generated this result transmitted ref erence range: 0 - 0 /1 00 WBC. The refere nce range was not u sed to interpret this result as normal/abnor mal. % Neutros (test code = 64 % 429) % Lymphs (test code = 27 % 430) % Monos (test code = 8 % 431) % Eos (test code = 432) 0 % % Baso (test code = 437) 0 % # Neutros (test code = 5.78 See_Comment [Aut omated message] 670) The system [employer] generated this result transmitted ref erence range: 1.56 - 6 .13 K/L. The refe rence range was not u sed to interpret this result as normal/abnor mal. # Lymphs (test code = 2.49 See_Comment [Auto mated message] 414) The system [employer] generated this result transmitted ref erence range: 1.18 - 3 .74 K/L. The refe rence range was not u sed to interpret this result as normal/abnor mal. # Monos (test code = 0.70 See_Comment H [Autom ated message] 415) The system [employer] generated this result transmitted ref erence range: 0.24 - 0 .36 K/L. The refe rence range was not u sed to interpret this result as normal/abnor mal. # Eos (test code = 416) 0.04 See_Comment [Au tomated message] The system [employer] generated this result transmitted ref erence range: 0.04 - 0 .36 K/L. The refe rence range was not u sed to interpret this result as normal/abnor mal. # Baso (test code = 417) 0.03 See_Comment [A utomated message] The system [employer] generated this result transmitted ref erence range: 0.01 - 0 .08 K/L. The refe rence range was not u sed to interpret this result as normal/abnor mal. Immature 0 % 0-1 Granulocytes-Relative (test code = 2801) Lab Interpretation (test Abnormal code = 53003-6) [facility] W/PLT COUNT & AUTO [id number] 23:29:59 Test Item Value Reference Range Interpretation [...] % 0-1 PERCENT (BEAKER) (test code = 6142)
[2022-03-09] MEDS ORDERED: NA CHLORIDE 0.9% 1,000 ML ONE ×2 (14:17→16:05)
[2022-03-09 15:03] LABS: Absolute Lymphocytes (CBC) 1.5 K/uL (0.7-4.9); Hematocrit 38.6 % (36.0-45.0); Lymphocytes % 45.3 % (15.3-44.8); MCV 83.1 fL (80-100); RBC Red Blood Cell Count 4.64 M/uL (3.86-4.86)
[2022-03-09 15:08] LABS: Albumin 3.8 g/dL (3.4-5.0); Potassium 3.8 mmol/L (3.5-5.1); Protein, Total 10.1 g/dL (6.4-8.2)
[2022-03-09 15:17] LABS: Urine Blood Negative (Negative); Urine Glucose Negative (Negative); Urine Protein Negative (Negative); Urine pH 5.5 (5.0-7.0)
[2022-03-09 15:23] LABS: MPV 7.2 fL (7.6-11.3)
--- NOTE | 2022-03-09 16:44 | RAD REPORT ---
EXAM DESCRIPTION: CT - Abdomen Pelvis W Contrast - 03/09/2022 4:25 pm CLINICAL HISTORY: Abdominal pain COMPARISON: none. TECHNIQUE: Computed axial tomography of the abdomen pelvis was obtained. 100 cc Isovue-300 was admin istered intravenously. Oral contrast was not requested which limits evaluation of bowel and appendix All CT scans are performed using dose optimization technique as appropriate and may include automated exposure control or mA/KV adjustment according to patient size. FINDINGS: The liver, spleen, pancreas, adrenal and kidneys appear unremarkable. There is no evidence of diverticulitis. Normal appendix. No adnexal mass. Trace amount of free fluid within the pelvis Spondylosis lumbar spine resulting spinal stenosis IMPRESSION: No significant acute abnormality displayed
--- NOTE | 2022-03-09 16:49 | ER ---
Nurse's Notes [facility] Name: Jaja Pan Age: 71 yrs Sex: Female : 1950 Arrival Date: 03/09/2022 Time: 13:15 Bed 27 Private MD: Diagnosis: Diarrhea, unspecified Presentation: 03/09 13:22 Chief complaint: Patient states: diarrhea, weakness, and stomach turning began last vg1 night after eating tuna [place] [employer]. Ebola Screen: Patient negative for fever greater than or equal to 101.5 degrees Fahrenheit, and additional compatible Ebola Virus Disease symptoms Patient denies exposure to infectious person. Patient denies travel to an Ebola-affected area in the 21 days before illness onset. Initial Sepsis Screen: Does the patient meet any 2 criteria? No. Patient's initial sepsis screen is negative. Does the patient have a suspected source of infection? No. Patient's initial sepsis screen is negative. Risk Assessment: Do you want to hurt yourself or someone else? Patient reports no desire to harm self or others. Onset of symptoms was March 08, 2022. 13:22 Method Of Arrival: Ambulatory vg1 13:22 Acuity: ALBERTO 3 vg1 13:27 Coronavirus screen: Vaccine status: Patient reports receiving the 2nd dose of the covid vg1 vaccine. Triage Assessment: 13:22 The onset of the patients symptoms was. General: Appears in no apparent distress. vg1 comfortable, Behavior is calm, cooperative. Pain: Denies pain. Neuro: Level of Consciousness is awake, alert, obeys commands, Oriented to person, place, time, situation. 13:22 Respiratory: Airway is patent Respiratory effort is even, unlabored. GI: Abdomen is vg1 round non-distended, Abd is non tender X 4 quads Patient currently denies nausea, vomiting. Historical: - Allergies: 13:27 PENICILLINS; vg1 - Home Meds: 13:27 amlodipine 10 mg tab 1 tab once daily [Active]; atorvastatin 40 mg Oral tab 2 tabs once vg1 daily [Active]; Hydralazine Oral [Active]; baby aspirin [Active]; Potassium Chloride Oral [Active]; valsartan oral [Active]; - PMHx: 13:27 Hypercholesterolemia; Hypertensive disorder; TIA; vg1 - Immunization history:: Client reports receiving the 2nd dose of the Covid vaccine. - Social history:: Smoking status: Patient/guardian denies using tobacco. Screenin:26 Abuse screen: Denies threats or abuse. Denies injuries from another. Nutritional hb screening: No deficits noted. Tuberculosis screening: No symptoms or risk factors identified. Fall Risk None identified. Assessment: 14:26 General: Appears in no apparent distress. Behavior is calm, cooperative. Pain: Denies hb pain. Neuro: Level of Consciousness is awake, alert, obeys commands, Oriented to person, place, time, situation. Cardiovascular: Patient's skin is warm and dry. Respiratory: Respiratory effort is even, unlabored, Respiratory pattern is regular, symmetrical. GI: Reports anorexia, diarrhea, nausea. : No signs and/or symptoms were reported regarding the genitourinary system. EENT: No signs and/or symptoms were reported regarding the EENT system. Derm: Skin is pink, warm \T\ dry. Musculoskeletal: No signs and/or symptoms reported regarding the musculoskeletal system. 14:59 Reassessment: Patient appears in no apparent distress at this time. Patient and/or hb family updated on plan of care and expected duration. Pain level reassessed. Patient is alert, oriented x 3, equal unlabored respirations, skin warm/dry/pink. 16:00 Reassessment: Patient appears in no apparent distress at this time. Patient and/or hb family updated on plan of care and expected duration. Pain level reassessed. Patient is alert, oriented x 3, equal unlabored respirations, skin warm/dry/pink. 17:22 Reassessment: Patient appears in no apparent distress at this time. Patient and/or hb family updated on plan of care and expected duration. Pain level reassessed. Patient is alert, oriented x 3, equal unlabored respirations, skin warm/dry/pink. Patient states feeling better. Patient states symptoms have improved. Vital Signs: 13:22 BP 115 / 79; Pulse 90; Resp 16; Temp 97.9; Pulse Ox 98% on R/A; Weight 83.91 kg; Height vg1 5 ft. 4 in. (162.56 cm); 14:59 BP 131 / 76; Pulse 82; Resp 15; Pulse Ox 99% ; hb 16:00 BP 133 / 82; Pulse 67; Resp 16; Pulse Ox 100% on R/A; hb 13:22 Body Mass Index 31.75 (83.91 kg, 162.56 cm) vg1 ED Course: 13:15 Patient arrived in ED. rg4 13:22 Arm band placed on. vg1 13:23 [facility]-C [facility] kb 13:23 Kyrie Caldwell DO is Attending Physician. kb 13:25 Triage completed. vg1 14:06 Dorys Godinez, RN is Primary Nurse. hb 14:26 Patient has correct armband on for positive identification. hb 14:40 Inserted saline lock: 22 gauge in right forearm, using aseptic technique. Blood bp collected. 16:27 Abdomen In Process Unspecified. EDMS 17:22 No provider procedures requiring assistance completed. IV discontinued, intact, hb bleeding controlled, No redness/swelling at site. Administered Medications: 14:40 Drug: NS 0.9% 1000 ml Route: IV; Rate: 1 bolus; Site: right forearm; hb 15:59 Follow up: IV Status: Completed infusion; IV Intake: 1000ml hb 15:59 Follow up: Response: No adverse reaction hb 15:59 Drug: NS 0.9% 1000 ml Route: IV; Rate: 1000 ml; Site: right forearm; hb Medication: 14:26 VIS not applicable for this client. hb Intake: 15:59 IV: 1000ml; Total: 1000ml. hb Outcome: 16:48 Discharge ordered by MD. kb 17:22 Discharged to home ambulatory. hb 17:22 Condition: stable 17:22 Discharge instructions given to patient, Instructed on discharge instructions, follow up and referral plans. medication usage, Demonstrated understanding of instructions, follow-up care, medications. 17:23 Patient left the ED. hb Signatures: Dispatcher [employer] EDMS Chichi Pan FNP-C FNP-Ckb Baxter, Heather RN RN hb Jessica Yusuf rg4 Sorin Thompson RN RN bp Joyce Yusuf, RN RN vg1 Corrections: (The following items were deleted from the chart) 13:29 13:27 Home Meds: lisinopril 20 mg Oral tab 1 tab once daily; vg1 vg1 13:29 13:27 Home Meds: vasartin; vg1 vg1 13:30 13:22 BP 115 / 79; Pulse 90bpm; Resp 16bpm; Pulse Ox 98% RA; Temp 97.9F; vg1 vg1
--- NOTE | 2022-03-09 16:49 | EDPHYS ---
Physician Documentation [facility] Name: Jaja Pan Age: 71 yrs Sex: Female : 1950 Arrival Date: 03/09/2022 Time: 13:15 Bed 27 Private MD: ED Physician Kyrie Caldwell HPI: 03/09 16:47 This 71 yrs old Black Female presents to ER via Ambulatory with complaints of Weakness, kb Diarrhea. 16:47 The patient presents to the emergency department with diarrhea. Onset: The kb symptoms/episode began/occurred this morning. Possible causes: unknown. The symptoms are aggravated by nothing. The symptoms are alleviated by nothing. Associated signs and symptoms: Pertinent positives: diarrhea, Pertinent negatives: abdominal pain, fever, GI bleeding, nausea, vomiting. Severity of symptoms: At their worst the symptoms were moderate in the emergency department the symptoms are unchanged. The patient has not experienced similar symptoms in the past. The patient has not recently seen a physician. Pt reports upset stomach and diarrhea that started this morning. Denies fever, abd pain, n/v. . Historical: - Allergies: 13:27 PENICILLINS; vg1 - Home Meds: 13:27 amlodipine 10 mg tab 1 tab once daily [Active]; atorvastatin 40 mg Oral tab 2 tabs once vg1 daily [Active]; Hydralazine Oral [Active]; baby aspirin [Active]; Potassium Chloride Oral [Active]; valsartan oral [Active]; - PMHx: 13:27 Hypercholesterolemia; Hypertensive disorder; TIA; vg1 - Immunization history:: Client reports receiving the 2nd dose of the Covid vaccine. - Social history:: Smoking status: Patient/guardian denies using tobacco. ROS: 16:46 Constitutional: Negative for fever, chills, and weight loss. kb 16:46 Abdomen/GI: Positive for diarrhea, Negative for nausea and vomiting. 16:46 All other systems are negative. Exam: 16:46 Constitutional: This is a well developed, well nourished patient who is awake, alert, kb and in no acute distress. Head/Face: Normocephalic, atraumatic. ENT: Moist Mucous membranes Cardiovascular: Regular rate and rhythm with a normal S1 and S2. No gallops, murmurs, or rubs. No pulse deficits. Respiratory: Respirations even and unlabored. No increased work of breathing. Talking in full sentences Abdomen/GI: Soft, non-tender. No distention Skin: Warm, dry with normal turgor. Normal color. MS/ Extremity: Pulses equal, no cyanosis. Neurovascular intact. Full, normal range of motion. Neuro: Awake and alert, GCS 15, oriented to person, place, time, and situation. Moves all extremities. Normal gait. Psych: Awake, alert, with orientation to person, place and time. Behavior, mood, and affect are within normal limits. Vital Signs: 13:22 BP 115 / 79; Pulse 90; Resp 16; Temp 97.9; Pulse Ox 98% on R/A; Weight 83.91 kg; Height vg1 5 ft. 4 in. (162.56 cm); 14:59 BP 131 / 76; Pulse 82; Resp 15; Pulse Ox 99% ; hb 16:00 BP 133 / 82; Pulse 67; Resp 16; Pulse Ox 100% on R/A; hb 13:22 Body Mass Index 31.75 (83.91 kg, 162.56 cm) vg1 MDM: 13:24 Patient medically screened. kb 16:46 Data reviewed: vital signs, nurses notes. Data interpreted: Pulse oximetry: on room air kb is 100 %. Interpretation: normal. Counseling: I had a detailed discussion with the patient and/or guardian regarding: the historical points, exam findings, and any diagnostic results supporting the discharge/admit diagnosis, lab results, radiology results, the need for outpatient follow up, a family practitioner, to return to the emergency department if symptoms worsen or persist or if there are any questions or concerns that arise at home. 19:07 ED course: Pt was contacted and informed of positive covid result. kb 03/09 13:26 Order name: CBC with Diff; Complete Time: 19:06 kb 03/09 13:26 Order name: CMP; Complete Time: 15:41 kb 03/09 13:26 Order name: Lipase; Complete Time: 15:41 kb 03/09 15:17 Order name: Urine Dipstick-Ancillary; Complete Time: 15:41 EDMS 03/09 16:51 Order name: Flu; Complete Time: 19:06 kb 03/09 16:51 Order name: COVID-19 SARS RT PCR (Document "Date of Onset" if Symptomatic); Complete kb Time: 19:06 03/09 13:26 Order name: IV Saline Lock; Complete Time: 14:40 kb 03/09 13:26 Order name: Labs collected and sent; Complete Time: 14:40 kb 03/09 15:42 Order name: CT Abd/Pelvis - IV Contrast Only kb 03/09 15:46 Order name: Abdomen ; Complete Time: 16:46 EDMS Administered Medications: 14:40 Drug: NS 0.9% 1000 ml Route: IV; Rate: 1 bolus; Site: right forearm; hb 15:59 Follow up: IV Status: Completed infusion; IV Intake: 1000ml hb 15:59 Follow up: Response: No adverse reaction hb 15:59 Drug: NS 0.9% 1000 ml Route: IV; Rate: 1000 ml; Site: right forearm; hb Disposition: 19:49 Co-signature as Attending Physician, Kyrie BETANCOURT was immediately available on-site ms3 in the Emergency Department for consultation in the care of the patient.. Disposition Summary: 03/09/22 16:48 Discharge Ordered Location: Home kb Condition: Stable kb Diagnosis - Diarrhea, unspecified kb Followup: kb - With: Emergency Department - When: As needed - Reason: Worsening of condition Followup: kb - With: Private Physician - When: 2 - 3 days - Reason: Recheck today's complaints, Continuance of care, Re-evaluation by your physician Discharge Instructions: - Discharge Summary Sheet kb - Food Choices to Help Relieve Diarrhea, Adult kb - Diarrhea, Adult, [id number] kb Forms: - Medication Reconciliation Form kb - Thank You Letter kb - Antibiotic Education kb - Prescription Opioid Use kb Signatures: Dispatcher [employer] EDMS Chichi Pan FNP-C FNP-Dorys Sepulveda, RN RN Joyce Li, RN RN vgKyrie Marmolejo DO DO ms3 Corrections: (The following items were deleted from the chart) 13: 13:27 Home Meds: lisinopril 20 mg Oral tab 1 tab once daily; vg1 vg1 13:29 13:27 Home Meds: vasartin; vg1 vg1
[2022-03-09 17:39] VITALS: TEMP 97.9
[2022-03-09 17:42] VITALS: BP 133/82; O2SAT 100
[2022-03-09 17:57] LABS: Blood Morphology Comment NOT SEEN (NOT SEEN); Platelet Estimate DECR; White Blood Cell Scan OK (OK)
== END 2022-03-09 17:23 | disposition home or self-care (01) ==
LOC: ER 13:10
DX: R19.7 Diarrhea, unspecified (principal); I10 Essential (primary) hypertension; E78.00 Pure hypercholesterolemia, unspecified; Z88.0 Allergy status to penicillin; Z79.82 Long term (current) use of aspirin
CPT/HCPCS: 85025; 36415; 81003; 83690; 80053; 87804 ×2; 74177; U0003; Q9967; J7030 ×2

== ENCOUNTER 2023-02-09 14:59 | Emergency (ER) | payer OTHER ==
--- OUTSIDE RECORDS SUMMARY | 2023-02-09 15:18 | XMS REPORT | Continuity of Care Document ---
:[address] [facility] t Address [address] [place] [address] Care Team Providers Name Role Phone Lorraine SMALL, Enrique Littlejohn Primary Care Physician [phone] Elizabeth Green DO Attending Clinician Orestes Frost MA Attending Clinician Unavailable Verna Felix Attending Clinician Unavailable Cassie SMALL, Sergey Attending Clinician ALYSA PEREZ Attending Clinician Unavailable Mo Ford MD Attending Clinician Leo Ruano MD Attending Clinician [phone] Alysa Perez MD Attending Clinician [phone] Jenny SMALL, Provider Not In Attending Clinician Unavailable LEO RUANO Admitting Clinician Unavailable Payers Payer Name Policy Type Policy Number Effective Date Expiration Date S vasquez [facility] MEDIC[facility] [id number] 2019 ADV 00:00:00 Problems Condition Condition Condition Status Onset Resolution Last Treating Co mments Source Name Details Category Date Date Treatment Clinician Date Acute Acute Disease Active 2020-[address] [facility] right-side right-side 0-03 Christina kes d weakness d weakness 00:00: Me dical 00 Center Hypertensi Hypertensi Disease Active 2020-[address] ve ve 0-03 [facility] emergency emergency 00:00: Medi babak 00 Center Poorly-con Poorly-con Disease Active 2020-[address] trolled trolled 0-03 [facility] hypertensi hypertensi 00:00: Me dical on on [place] Cerebrovas Cerebrovas Disease Active 2020-[address] cular cular 0-03 [facility] accident accident 00:00: Medica l (CVA) 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 Allergies, Adverse Reactions, Alerts Allergy Allergy Status Severity Reaction(s) Onset Inactive Treating Comm ents Source Name Type Date Date Clinician Penicill Propensi Active Hives, Rash 2020-[address] in ty to 0-03 [facility] adverse 00:00: Medical reaction 00 Center s PENICILL Allergy Active High Hives 2020-[address] [facility] [place] 0-03 [facility] 00:00: Medical 00 [place] NO KNOWN Allergy Active [facility] Family History Family Member Diagnosis Comments Start Date Stop Date Source Natural brother Diabetes [facility] Natural mother Hypertension [facility] Natural mother No Known Problem [facility] Natural father No Known Problem [facility] Social History Social Habit Start Date Stop Date Quantity Comments Source History of tobacco Current smoker Me thodist use [facility] Gender identity [facility] Alcohol intake 2023-01-06 2023-01-06 Ex-drinker [facility] 00:00:00 00:00:00 (finding) Hospital History of Social 2023-01-06 2023-01-[address] function 00:00:00 00:00:00 [facility] Tobacco use and 2021-04-11 2021-04-11 Never used [facility] St Christina kes exposure 00:00:00 00:00:00 [facility] Cigarettes smoked 2021-04-11 2021-04-11 [facility] current (pack per 00:00:00 00:00:00 Medical Center day) - Reported Sex Assigned At [birth year] [facility] [address] kes 00:00:00 00:00:00 [facility] Smoking Status Start Date Stop Date Source Tobacco smoking [facility] consumption unknown Ex-smoker 2022-04-26 00:00:00 2022-04-26 [facility] 00:00:00 Current every day smoker 2021-04-11 00:00:00 [facility] Medications Ordered Filled Start Stop Current Ordering Indication Dosage Frequency Signature Comments Components Source Medication Medication Date Date Medication? Clinician (SIG) Name Name onabotulinu 2022- No [id number] 300U [facility] mtoxinA 630 06-[address] (BOTOX) 17:00: 16:46 Hospita injection 00 :00 l 300 Units amLODIPine 2021-07 Yes 10mg QD Take 1 Metho di (NORVASC) 2-02 tablet (10 st 10 mg 09:27: mg total) Hospita tablet 52 by mouth l daily. potassium 2021-07 Yes 10meq Q.5D Take 1 Meth[facility] di chloride 2-02 tablet (10 st (KLOR-CON) 09:27: mEq total) H ospita 10 MEQ CR 52 by mouth 2 l tablet (two) times a day. valsartan 2021-07 Yes 320mg QD Take 1 Metho di (DIOVAN) 2-[address] 320 MG 09:27: (320 mg Hospita tablet 52 total) by l mouth daily. atorvastati 2021-07 Yes 40mg QD Take 1 Meth reece n (LIPITOR) 2-02 tablet (40 st 40 mg 09:27: mg total) Hospita tablet 52 by mouth l daily. hydrALAZINE 2021-07 Yes 25mg Q.[id number] Take 1 [facility] (APRESOLINE 2-02 [id number] tablet (25 st ) 25 MG 09:27: 3D mg total) Hospi ta tablet 52 by mouth 3 l (three) times a day. Take 2 tablets every 8 hours aspirin 2021-07 Yes 81mg QD Take 1 [facility] (ECOTRIN) 2-02 tablet (81 st 81 MG 09:27: mg total) Hospita enteric 52 by mouth l coated daily. tablet tiZANidine 2021-07 No 2mg Q8H Take 1 Meth reece (ZANAFLEX) 2-02 01-02 tablet (2 st 2 MG tablet 00:00: 05:59 mg total) Hospita 00 :00 by mouth l every 8 (eight) hours as needed for muscle spasms for up to 30 days. tiZANidine 2021-07- No 2mg Q8H Take 1 Meth reece (ZANAFLEX) 0-18 11-18 tablet (2 st 2 MG tablet 00:00: 05:59 mg total) Hospita 00 :00 by mouth l every 8 (eight) hours as needed for muscle spasms for up to 30 days. amLODIPine 2020-07- No 10mg QD Take [address] [facility] (NORVASC) 0-08 10-08 tablet (10 [place] 10 MG 00:00: 23:59 mg total) Medica l tablet 00 :00 by mouth Center daily. aspirin 81 2020-2021- No 81mg QD Take [address] MG chewable 0-08 10-08 tablet (81 L ukes tablet 00:00: 23:59 mg total) Medic al 00 :00 by mouth Center daily. cyanocobala 2020-07- No 1000ug QD Take [address] min, 0-08 10-08 tablet [facility] vitamin 00:00: 23:59 (1,000 mcg Med ical B-12, 1000 00 :00 total) by Cent er MCG tablet mouth daily. amLODIPine 2020-07- No 10mg QD Take [address] [facility] (NORVASC) 0-08 10-08 tablet (10 [place] 10 MG 00:00: 23:59 mg total) Medica l tablet 00 :00 by mouth Center daily. aspirin 81 2020-07- No 81mg QD Take [address] [facility] MG chewable 0-08 10-08 tablet (81 L ukes tablet 00:00: 23:59 mg total) Medic al 00 :00 by mouth Center daily. cyanocobala 2020-07- No 1000ug QD Take [address] min, 0-08 10-08 tablet [facility] vitamin 00:00: 23:59 (1,000 mcg Med ical B-12, 1000 00 :00 total) by Cent er MCG tablet mouth daily. atorvastati 2020-07- No 80mg QD Take [address] n (LIPITOR) 0-07 10-07 tablet (80 L ukes 80 MG 00:00: 23:59 mg total) Medica l tablet 00 :00 by mouth Center nightly. hydrALAZINE 2020-07- No 50mg Take [address] [facility] (APRESOLINE 0-07 10-07 tablet (50 L ukes ) 50 MG 00:00: 23:59 mg total) Medi babak tablet 00 :00 by mouth Center every 8 (eight) hours. atorvastati 2021-1 2022- No 80mg QD Take [address] n (LIPITOR) 004-15 tablet (80 L ukes 80 MG 00:00: 23:59 mg total) Medica l tablet 00 :00 by mouth Center nightly. hydrALAZINE 2020-07 No 50mg Take [address] [facility] (APRESOLINE 004-15 tablet (50 L ukes ) 50 MG 00:00: 23:59 mg total) Medi babak tablet 00 :00 by mouth Center every 8 (eight) hours. Vital Signs Vital Name Observation Time Observation Value Comments Source Systolic blood 2023-01-06 15:21:00 170 mm[Hg] [facility] Hospital pressure Diastolic blood 2023-01-06 15:21:00 92 mm[Hg] [facility] pressure Heart rate 2023-01-06 15:21:00 77 /min [facility] Body temperature 2023-01-06 15:21:00 36.5 Allyssa [facility] Respiratory rate 2022-06-10 15:25:00 18 /min [facility] Body height 2022-06-10 15:25:00 160 cm [facility] Body weight 2022-06-10 15:25:00 81.647 kg [facility] BMI 2022-06-10 15:25:00 31.89 kg/m2 [facility] Heart rate 2021-04-15 16:10:00 83 /min [facility] Body temperature 2021-04-15 16:10:00 36.11 Allyssa [facility] Respiratory rate 2021-04-15 16:10:00 18 /min [facility] Oxygen saturation in 2021-04-15 16:10:00 95 /min [facility] Arterial blood by Medical Ce nter Pulse oximetry Systolic blood 2021-04-15 16:10:00 161 mm[Hg] [facility] Diastolic blood 2021-04-15 16:10:00 86 mm[Hg] [facility] Body height 2021-04-12 00:43:00 162.6 cm [facility] Body weight 2021-04-12 00:43:00 92.08 kg [facility] BMI 2021-04-12 00:43:00 34.84 kg/m2 [facility] Procedures Procedure Date / Time Performing Clinician Source Performed BOTULINUM TOXIN 2023-01-06 16:48:05 Elizabeth Green Ho spital INJECTION EKG-REHAB 2021-04-16 17:42:21 [facility] 2021-04-16 17:42:21 [facility] CBC (HEMOGRAM ONLY) 2021-04-15 04:29:00 [facility] PHOSPHORUS 2021-04-15 04:29:00 [facility] MAGNESIUM 2021-04-15 04:29:00 [facility] SARS-COV2/RT-PCR ([facility] & 2021-04-14 12:25:00 Alysa Perez [facility] REF LABS) [facility] CBC (HEMOGRAM ONLY) 2021-04-14 04:19:00 [facility] BASIC METABOLIC PANEL 2021-04-14 04:19:00 [facility] (7) [facility] PHOSPHORUS 2021-04-14 04:19:00 [facility] MAGNESIUM 2021-04-14 04:19:00 [facility] CBC (HEMOGRAM ONLY) 2021-04-13 04:44:00 [facility] BASIC METABOLIC PANEL 2021-04-13 04:44:00 [facility] () [facility] PHOSPHORUS 2021-04-13 04:44:00 [facility] MAGNESIUM 2021-04-13 04:44:00 [facility] 2D ECHO W/ DOPPLER 2021-04-12 11:06:29 Sharon Pulliam [facility] (CW/PW/COLOR) [place] MR BRAIN WITHOUT IV 2021-04-12 08:23:00 AldenLeo [facility] HC LAB HIV-1 AG 2021-04-12 00:42:00 [facility] RPR 2021-04-12 00:42:00 Pulliam Sharon Rogereman [facility] CBC W/PLT COUNT & AUTO 2021-04-11 23:17:00 LeakeyLeo [facility] DIFFERENTIAL [facility] COMPREHENSIVE METABOLIC 2021-04-11 23:17:00 Leo Ruano I [facility] PANEL [facility] MAGNESIUM 2021-04-11 23:17:00 LeakeyLeo [facility] PHOSPHORUS 2021-04-11 23:17:00 LeakeyLeo [facility] PROTHROMBIN TIME/INR 2021-04-11 23:17:00 LeakeyLeo [facility] S [facility] VITAMIN B12 AND FOLATE 2021-04-11 23:17:00 Leakey [facility] HEMOGLOBIN A1C 2021-04-11 23:17:00 [facility] LIP[facility] 2021-04-11 23:17:00 Leakey Leo [facility] TSH/FREE T4 IF INDICATED 2021-04-11 23:17:00 LeakeyLeo [facility] CBC W/PLT COUNT & AUTO 2021-04-11 23:17:00 LeakeyLeo [facility] EKG-SCANNED 2021-04-11 00:00:[address] [facility] [place] Plan of Care Planned Activity Planned Date Details Comments Source Future Scheduled 2023-03-10 Influenza Vaccine (#1) [facility] Test 00:00:00 [code = Influenza Medical Ce nter Vaccine (#1)] Future Scheduled 2023-02-09 [facility] for [facility] Test 09:48:02 malignant neoplasm of colon (procedure) [code = 301633833] Future Scheduled 2023-02-09 [facility] Test 09:48:02 malignant neoplasm of colon (procedure) [code = 778467671] Future Scheduled 2023-02-09 [facility] Test 09:48:02 malignant neoplasm of colon (procedure) [code = 215148880] Future Scheduled 2023-02-09 COVID-19 VACCINE (#1) [facility] Test 09:48:02 [code = COVID-19 VACCINE (#1)] Future Scheduled 2023-02-09 Hepatitis C screening [facility] Test 09:48:02 (procedure) [code = 960278622] Future Scheduled 2023-02-09 BREAST CANCER [facility] Test 09:48:02 SCREENING [code = BREAST CANCER SCREENING] Future Scheduled 2023-02-09 Screening for [facility] Test 09:48:02 malignant neoplasm of colon (procedure) [code = 833368438] Future Scheduled 2023-02-09 Screening for [facility] Test 09:48:02 malignant neoplasm of colon (procedure) [code = 581312704] Future Scheduled 2023-02-09 [facility]ING[facility]IN[facility] ([facility] 09:48:02 of 2) [code = SHINGLES VACCINES (1 of 2)] Future Scheduled 2023-02-09 65+ [facility]UMOCOCCAL [facility] Test 09:48:02 VACCINE (1 - PCV) [code = 65+ PNEUMOCOCCAL VACCINE (1 - PCV)] Future Scheduled 2023-02-09 INFLUENZA VACCINE [facility] Test 09:48:02 [code = INFLUENZA VACCINE] Future Scheduled 2022-07-[address] [facility] Test 00:00:00 (12+) [code = Medical Center DEPRESSION SCREENING (12+)] Future Scheduled 2022-07-10 FALLS RISK SCREENING [facility] Test 00:00:00 [code = FALLS RISK Medical C enter SCREENING] Future Scheduled 2022-04-[address] [facility] Test 00:00:00 Counseling and Medical Cente r Screening (12+) [code = Tobacco Cessation Counseling and Screening (12+)] Future Scheduled 2022-03-10 INFLUENZA VACCINE (#1) [facility] Test 00:00:00 [code = INFLUENZA Medical Ce nter VACCINE (#1)] Future Scheduled 2021-07-[address] [facility] Test 00:00:00 (12+) [code = Medical Center DEPRESSION SCREENING (12+)] Future Scheduled 2021-07-10 FALLS RISK SCREENING [facility] Test 00:00:00 [code = FALLS RISK Medical C enter SCREENING] Future Scheduled 2020-07-[address] [facility] Test 00:00:00 WELLNESS (YEAR 2 or Medical Center FIRST YEAR if no IPPE) [code = MEDICARE ANNUAL WELLNESS (YEAR 2 or FIRST YEAR if no IPPE)] Future Scheduled 2020-07-[address] [facility] Test 00:00:00 WELLNESS (YEAR 2 or Medical Center FIRST YEAR if no IPPE) [code = MEDICARE ANNUAL WELLNESS (YEAR 2 or FIRST YEAR if no IPPE)] Future Scheduled 2002 SHINGLES VACCINES ([address] [facility] Test 00:00:00 of 2) [code = SHINGLES Medic al Center VACCINES (1 of 2)] Future Scheduled 2002 SHINGLES VACCINES ([address] [facility] Test 00:00:00 of 2) [code = SHINGLES Medic al Center VACCINES (1 of 2)] Future Scheduled 1971 DTAP/TDAP/TD VACCINES [facility] Test 00:00:00 (1 - Tdap) [code = Medical C enter DTAP/TDAP/TD VACCINES (1 - Tdap)] Future Scheduled 1971 DTAP/TDAP/TD VACCINES [facility] Test 00:00:00 (1 - Tdap) [code = Medical C enter DTAP/TDAP/TD VACCINES (1 - Tdap)] Future Scheduled 1970 HEPATITIS C [facility]CRE[facility]ING [facility] Test 00:00:00 [code = HEPATITIS C Medical Center SCREENING] Future Scheduled 1970 HEPATITIS C [facility]CRE[facility]ING [facility] Test 00:00:00 [code = HEPATITIS C Medical Center SCREENING] Future Scheduled 1958 PNEUMOCOCCAL 65+ Y[facility] Test 00:00:00 (1 - PCV) [code = Medical Ce nter PNEUMOCOCCAL 65+ YRS (1 - PCV)] Future Scheduled 1958 PNEUMOCOCCAL 65+ YRS [facility] Test 00:00:00 (1 - PCV) [code = Medical Ce nter PNEUMOCOCCAL 65+ YRS (1 - PCV)] Future Scheduled 1952 COVID-19 VACCINE (#1) [facility] Test 00:00:00 [code = COVID-[address] VACCINE (#1)] Future Scheduled 1950 COVID-19 VACCINE (#1) [facility] Test 00:00:00 [code = COVID-[address] VACCINE (#1)] Future Scheduled [address] [facility] Test 00:00:00 malignant neoplasm of Medica l Center breast (procedure) [code = 277166563] Future Scheduled [address] [facility] Test 00:00:00 (combo) [code = CT Medical C enter Colonography (combo)] Future Scheduled [address] [facility] Test 00:00:00 malignant neoplasm of Medica l Center colon (procedure) [code = 622056145] Future Scheduled [address] [facility] Test 00:00:00 malignant neoplasm of Medica l Center colon (procedure) [code = 477608850] Future Scheduled 1950 DXA SCAN [code = DXA [facility] Test 00:00:00 SCAN] [facility] Future Scheduled [address] [facility] Test 00:00:00 malignant neoplasm of Medica l Center colon (procedure) [code = 365968873] Future Scheduled [address] [facility] Test 00:00:00 malignant neoplasm of Medica l Center colon (procedure) [code = 452080665] Future Scheduled 1950 Sigmoidoscopy [code = [facility] [address] [facility] Test 00:00:00 malignant neoplasm of Medica l Center breast (procedure) [code = 214458613] Future Scheduled [address] [facility] Test 00:00:00 (combo) [code = CT Medical C enter Colonography (combo)] Future Scheduled [address] [facility] Test 00:00:00 malignant neoplasm of Medica l Center colon (procedure) [code = 868961819] Future Scheduled [address] [facility] Test 00:00:00 [facility] (procedure) [code = 989355023] Future Scheduled 1950 DXA SCAN [code = DXA [facility] Test 00:00:00 SCAN] [facility] Future Scheduled [address] [facility] Test 00:00:00 malignant neoplasm of Medica l Center colon (procedure) [code = 200223510] Future Scheduled [address] [facility] Test 00:00:00 malignant [facility] colon (procedure) [code = 740990838] Future Scheduled 1950 Sigmoidoscopy [code = [facility] Test 00:00:00 Sigmoidoscopy] [facility] Encounters Start End Encounter Admission Attending Care Care Encounter Source Date/Time Date/Time Type Type Clinicians Facility Department ID 2022-07-14 Outpatient [facility] [id number] [place] 10:49:19 [id number] [facility] 2023-01-06 2023-01-06 Procedure Max, 1.2.840.1 [id number] Methodi 10:00:00 11:21:33 visit Elizabeth Medina 89587.1.[address] 3.430.2.7 Hospit a .3.950691 l .8 2023-01-06 2023-01-06 [facility] [id number] [address] [place] [address] 00:00:00 00:00:00 ELIZABETH [address] 2022-12-15 2022-12-15 Orders Margot, 1.2.840.1 [id number] [facility]i 00:00:00 00:00:00 Only Orestes [address]90.1.[address] 3.430.2.7 Hospit a .3.464654 l .8 2022-11-09 2022-11-09 Telephone Isidro, 1.2.840.1 [id number] Methodi 00:00:00 00:00:[address] 3.430.2.7 Hospit a .3.283276 l .8 2022-08-01 2022-08-01 Wenden Felix, 1.2.840.1 [id number] Methodi 00:00:00 00:00:[address] 3.430.2.7 Hospit a .3.362388 l .8 2022-06-10 2022-06-10 Office Max, 1.2.840.1 [id number] Methodi 09:00:00 09:43:51 Visit Elizabeth Medina 65835.1.[address] 3.430.2.7 Hospit a .3.722063 l .8 2022-06-10 2022-06-10 Travel 1.2.840.1 1.2.220.391 [id number] Methodi 00:00:00 00:00:[address] 3.430.2.7 0.2.7.3.698 Ho spita .3.769142 084.8 l .8 2022-06-10 2022-06-10 [facility] [id number] [place] 00:00:00 00:00:00 ELIZABETH [address] 2022-05-06 2022-05-06 [facility] Max, 1.2.840.1 [id number] Methodi 00:00:00 00:00:00 Only Elizabeth Medina 98903.1.[address] 3.430.2.7 Hospit a .3.986423 l .8 2022-05-04 2022-05-04 [facility] Felix, 1.2.840.1 [id number] Methodi 00:00:00 00:00:00 Only Verna 29671.1.[address] 3.430.2.7 Hospit a .3.894732 l .8 2022-04-26 2022-04-26 Office Max, 1.2.840.1 [id number] Methodi 09:00:00 10:19:40 Visit Elizabeth Medina 06565.1.[address] 3.430.2.7 Hospit a .3.765370 l .8 2022-04-26 2022-04-26 Telephone Isidro, 1.2.840.1 [id number] Methodi 00:00:00 00:00:[address] 3.430.2.7 Hospit a .3.233609 l .8 2022-04-26 2022-04-26 Travel 1.2.840.1 1.2.724.418 [id number] Methodi 00:00:00 00:00:[address] 3.430.2.7 0.2.7.3.698 Ho spita .3.964096 084.8 l .8 2022-04-26 2022-04-[address] [facility] [id number] [place] 00:00:00 00:00:00 ELIZ[address]ETH [address] 2021-04-28 2021-04-28 EXT [facility] IP Cassie, EXT MSRDP 1.2.840.114 1 [id number] [place] 00:00:00 00:00:00 Sergey LOCATION 350.1.13.58 H ealth 9.2.7.2.686 [id number] 0 2021-04-28 2021-04-28 EXT [facility] IP Cassie, EXT MSRDP 1.2.840.114 1 [id number] [place] 00:00:00 00:00:00 Sergey LOCATION 350.1.13.58 H ealth 9.2.7.2.686 [id number] 0 2021-04-11 2021-04-15 Inpatient ER [facility] [id number] [facility] 22:27:00 18:05:00 [facility] 2021-04-11 2021-04-15 [id number] [facility] 22:27:00 18:05:00 [facility] Leo Ruano [facility] 2021-04-15 2021-04-15 Orders System, EXT MSRDP 1.2.328.262 [id number] [place] 00:00:00 00:00:00 Only Provider LOCATION 350.1.13.58 Health Not In 9.2.7.2.686 [id number] 0 2021-04-15 2021-04-15 Orders System, EXT MSRDP 1.2.418.438 [id number] [place] 00:00:00 00:00:00 Only Provider LOCATION 350.1.13.58 Health Not In 9.2.7.2.686 [id number] 0 Results Test Description Test Time Test Comments Results Result Comments Source Magnesium 2021-04-15 05:34:37 Test Item Value Reference Range Interpretation Comme nts Magnesium (test code = 14178-4) 2.1 mg/dL 1.6-2.6 MICHAEL (test code = MICHAEL) Helpdesk Manager ID - CORNELIA M Lab Interpretation (test code = 87219-6) [facility] 05:34:37 Test Item Value Reference Range Interpretation Comments Phosphorus (test code = 3.4 mg/dL 2.3-4.7 2777-1) MICHAEL (test code = MICHAEL) Helpdesk Manager ID - CORNELIA M Lab Interpretation (test Normal code = 92642-6) [facility] 05:34:37 Test Item Value Reference Range Interpretation Comments MAGNESIUM (BEAKER) (test code = 2.1 mg/dL 1.6-2.6 627) Helpdesk Manager ID - CORNELIA [id number] 05:34:37 Test Item Value Reference Range Interpretation Comments PHOSPHORUS (BEAKER) (test code = 3.4 mg/dL 2.3-4.7 604) Helpdesk Manager ID - CORNELIA [facility] (Hemogram only)2021-04-15 05:04:04 Test Item Value Reference Range Interpretation Comments WBC (test code = 6690-2) 7.0 See_Comment [A utomated message] The system Gengo generated this result transmitted ref erence range: 3.5 - 10 .5 K/L. The refe rence range was not u sed to interpret this result as normal/abnor mal. RBC (test code = 789-8) 4.54 See_Comment [Au tomated message] The system Gengo generated this result transmitted ref erence range: 3.93 - 5 .22 M/L. The refe rence range was not u sed to interpret this result as normal/abnor mal. MCHC (test code = 786-4) 32.3 See_Comment [A utomated message] The system Gengo generated this result transmitted ref erence range: [...] code = 361 See_Comment [Aut omated message] 777-3) The system Gengo generated this result transmitted ref erence range: 150 - 45 0 K/CU MM. The referen ce range was not u sed to interpret this result as normal/abnor mal. MPV (test code = 63470-5) 9.4 fL 9.4-12.3 nRBC (test code = 413) 0 See_Comment [Aut omated message] The system Gengo generated this result transmitted ref erence range: 0 - 0 /1 00 WBC. The refere nce range was not u sed to interpret this result as normal/abnor mal. Lab Interpretation (test Normal code = 67613-8) [facility] (HEMOGRAM ONLY)2021-04-15 05:04:04 Test Item Value Reference [...] Comments SARS-COV2/RT-PCR (test Negative Negative code = 51911-8) MICHAEL (test code = MICHAEL) Negative result [...] SARS-CoV-2 assay. Fact Sheet for Healthcare Providers:[email or web address]://[email or web address] SARS-CoV-2 HCP Fact Sheet 51-439285.pdf Fact Sheet for Healthcare Patients:[email or web address]://[email or web address] [email or web address]/RT SARS-CoV-2 Patient Fact Sheet EN 51-854029Q7.pdf Lab Interpretation Normal (test code = 16636-0) [facility] RE[facility])2021-04-14 21:39:57 Test Item Value Reference Range Interpretation Comments SARS-COV2/RT-PCR (test code = Negative Negative 9361455) Negative result for this test determines that [...] 564(g) of the Act.Testing was performed using [employer] aryan Un[employer] SARS-CoV-2 assay.Fact Sheet for Healthcare Providers:https://[email or web address].diaz/chayo/RT SARS-CoV-2 HCP Fact Sheet 51- [id number].pdfFact Sheet for Healthcare Patients:[email or web address]://[email or web address].[email or web address]/RT SARS-CoV-2 Patient Fact Sheet EN [id number].[id number] 05:18:03 Test Item Value Reference Range Interpretation Comments PHOSPHORUS (BEAKER) (test code = 3.5 mg/dL 2.3-4.7 604) Helpdesk [facility] [id number] 05:18:02 Test Item Value Reference Range Interpretation Comments Sodium (test code = 140 meq/L 908-749 1284-2) Potassium (test 3.8 meq/L 3.5-5.1 code = 2823-3) Chloride (test code 106 meq/L 98-107 = 2075-0) CO2 (test code = 27 meq/L 22-29 8-9) BUN (test code = 16 mg/dL 7-21 3094-0) Creatinine (test 1.01 mg/dL 0.57-1.25 code = 2160-0) Glucose (test code 104 mg/dL 70-105 = 2345-7) Calcium (test code 9.3 mg/dL 8.4-10.2 = 53051-2) EGFR (test code = 66 mL/min/1.73 [place] [address]-3) NOT ACCURATE CREATININE CLEARANCE IN PREDICTING GLOMERULAR FILTRATION RATE . ESTIMATED GFR I S NOT APPLICABLE FOR DIALYSIS PATIEN TS. MICHAEL (test code = Helpdesk Manager ID - MICHAEL) [facility] METABOLIC [id number] 05:18:02 Test Item Value Reference Range Interpretation [...] S NOT APPLICABLE FOR DIALYSIS PATIEN TS. Helpdesk Manager ID - [id number] 05:18:02 Test Item Value Reference Range Interpretation Comments MAGNESIUM (BEAKER) (test code = 2.1 mg/dL 1.6-2.6 627) Helpdesk Manager ID - jrlCBC (HEMOGRAM ONLY)2021-04-14 04:54:47 Test [...] WBC 0-0 (BEAKER) (test code = 413) [id number] 05:58:09 Test Item Value Reference Range Interpretation Comments PHOSPHORUS (BEAKER) (test code = 3.8 mg/dL 2.3-4.7 604) Helpdesk Manager ID - JRLBASIC METABOLIC [id number] 05:58:08 Test Item Value Reference Range Interpretation [...] S NOT APPLICABLE FOR DIALYSIS PATIEN TS. Helpdesk Manager ID - [id number] 05:58:08 Test Item Value Reference Range Interpretation Comments MAGNESIUM (BEAKER) (test code = 2.0 mg/dL 1.6-2.6 627) Helpdesk Manager ID - JRLCBC (HEMOGRAM ONLY)2021-04-13 05:32:46 Test [...] Radiology Study observation (narrative) (test code = 52286-9) PXN (test code = Britton Gasca MD - PXN) 04/12/2021 Transthoracic Echocardiography Report (TTE) Demographics Patient Name ANGEL PULIDO Date of Study 04/12/2021 DANICA Gender Female Visit Number [id number] Race Black Room Number 918 Number Date of 1950 Referring Leo Menendez Physician MD Alden Age 71 year(s) Testing Specialist Janiya Clement RDCS Interpreting Britton Gasca MD Physician Procedure Type [...] CO: 4.88 l/min LVOT CI: 2.48 l/min/m^2 [facility]13[facility]00 Test Item Value Reference Range Interpretation Comments RPR (test code = 06359-3) Nonreactive Nonreactive Lab Interpretation (test code = Normal 09068-1) [facility] 13:13:00 Test Item Value Reference Range Interpretation Comments RPR SCREEN (BEAKER) (test code = Nonreactive Nonreactive 420) Hemoglobin [id number] 11:58:16 Test Item Value Reference Range Interpretation Comments Hemoglobin A1C (test code = 4548-4) 4.3 % 4.3-6.1 Lab Interpretation (test code = Normal 75317-5) [facility] [id number] 11:58:16 Test Item Value Reference Range Interpretation Comments HEMOGLOBIN A1C (JOSE L) (test code = 4.3 % 4.3-6.1 368) MR, BRAIN, WITHOUT [id number] 08:33:00Unlisted Reason for Exam - Click Yes and Enter Reason Below->No [facility] 1950 Sex: FFINAL [...] MDReport Verified Date/Time: 04/12/2021 08:33:48 Reading Location: [facility] C0[facility] Neuro Reading Room Vitamin B12 and [id number] 03:25:46 Test Item Value Reference Range Interpretation Comments Vitamin B12 (test 209 pg/mL 213-816 L code = 2132-9) Folate (test code = >40.00 See_Comment [Automa drew 2284-8) message] The system which generated this result transmitted reference range : >=7.00 ng/mL. T he reference range was not used to interpret this result as normal/abnormal . MICHAEL (test code = MICHAEL) Helpdesk Manager ID - PRIYA GUDINOperator ID - PRIYA W Lab Interpretation Abnormal (test code = 70855-6) [facility] AND [id number] 03:25:46 Test Item Value Reference Range Interpretation Comments VITAMIN B12 (BEAKER) 209 pg/mL 213-816 L (test code = 774) FOLATE (BEAKER) > ng/mL See_Comment [Automated message] The (test code = 362) system [facility] generated this result tra nsmitted reference range : >=7.00. The reference r rodolfo was not used to int erpret this result as normal/abnormal . Helpdesk Manager ID - PRIYA Gonzalezator ID - PRIYA WHIV-1 Antigen with HIV-1/2 Antibody 2021-04-12 01:40:58 Test Item Value Reference Range Interpretation Comments HIV-1 Antigen with HIV 1&2 Nonreactive Nonreactive Antibody (test code = 47476-2) MICHAEL (test code = MICHAEL) Helpdesk Manager ID - DB Lab Interpretation (test Normal code = 99470-1) [facility] ANTIGEN WITH HIV-1/2 [id number] 01:40:58 Test Item Value Reference Range Interpretation Comments HIV-1 ANTIGEN WITH HIV 1\T\2 Nonreactive Nonreactive ANTIBODY (2) (BEAKER) (test code = 2586) Helpdesk Manager ID - DBTSH/Free T4 If [id number] 00:13:23 Test Item Value Reference Range Interpretation Comments TSH (test code = 1.717 See_Comment [Automated 69352-7) message] The system which generated this result transmit drew reference range : 0.350 - 4.940 uIU/mL. The reference range was not used to interpret this result as normal/abnormal . MICHAEL (test code = MICHAEL) Helpdesk Manager ID - DB Lab Interpretation Normal (test code = 03175-5) [facility] Center[facility]FREE T4 IF [id number] 00:13:23 Test Item Value Reference Range Interpretation Comments THYROID STIMULATING HORMONE 1.717 uIU/mL 0.350-4.940 (BEAKER) (test code = 772) Helpdesk Manager ID - DBComprehensive metabolic [id number] 23:52:24 Test Item Value Reference Range Interpretation Comments Protein, Total (test 9.0 See_Comment H [Autom ated code = 2885-2) message] The system which generated this result transmitted reference range : 6.0 - 8.3 gm/dL . The reference range was not used to interpr et this result as normal/abnormal . Albumin (test code = 3.9 g/dL 3.5-5.0 74566-8) Alkaline Phosphatase 63 U/L 40-150 (test code = 6768-6) Total Bilirubin (test 1.9 mg/dL 0.2-1.2 H code = 1974-2) Sodium (test code = 138 meq/L 102-368 7464-2) Potassium (test code 3.6 meq/L 3.5-5.1 = 2823-3) Chloride (test code = 102 meq/L 98-107 2075-0) CO2 (test code = 27 meq/L 22-29 2027-9) BUN (test code = 13 mg/dL 7-21 3094-0) Creatinine (test code 1.18 mg/dL 0.57-1.25 = 2160-0) Glucose (test code = 96 mg/dL 70-105 2345-7) Calcium (test code = 9.7 mg/dL 8.4-10.2 33569-7) AST (test code = 18 U/L 5-34 1920-8) ALT (test code = 8 U/L 6-55 1742-6) EGFR (test code = 55 mL/min/1[place] [address]-1) m NOT ACCURATE CREATININE CLEARANCE IN PREDICTING GLOMERULAR FILTRATION RATE . ESTIMATED GFR I S NOT APPLICABLE FOR DIALYSIS PATIENTS. MICHAEL (test code = MICHAEL) Helpdesk Manager ID - DBSpecimen slightly icteric Lab Interpretation Abnormal (test code = 85607-8) [facility] Center[facility]id [id number] 23:52:24 Test Item Value Reference Range Interpretation Comments Triglycerides (test 83 mg/dL code = 2571-8) Cholesterol (test code 193 mg/dL = 2093-3) HDL (test code = 49 mg/dL 2084-9) LDL Calculated (test 127 mg/dL code = 14093-7) MICHAEL (test code = MICHAEL) Triglyceride Reference Range: Low Risk <150 Borderline 150-199 High Risk 200-499 Very High Risk >=500 Cholesterol Reference Range: Low Risk <200 Borderline 200-239 High Risk >240 HDL Cholesterol Reference Range: Low Risk >=60 High Risk <40 LDL Cholesterol Reference Range: Optimal <100 Near Optimal 100-129 Borderline 130-159 High 160-189 Very High >=190 Helpdesk Manager ID - DBSpecimen slightly icteric [facility] [id number] 23:52:24 Test Item Value Reference Range Interpretation [...] S NOT APPLICABLE FOR DIALYSIS PATIEN TS. Helpdesk Manager ID - DBSpecimen slightly ictericLIPID [id number] 23:52:24 Test Item Value Reference Range Interpretation [...] Borderline 130-159 High 160-189 Very High >=190 Helpdesk Manager ID - DBSpecimen slightly [id number] 23:52:23 Test Item Value Reference Range Interpretation Comments MAGNESIUM (BEAKER) (test code = 1.9 mg/dL 1.6-2.6 627) Helpdesk Manager ID - [id number] 23:52:23 Test Item Value Reference Range Interpretation Comments PHOSPHORUS (BEAKER) (test code = 3.2 mg/dL 2.3-4.7 604) Helpdesk Manager ID - DBProthrombin time/[id number] 23:43:21 Test Item Value Reference Interpretation Comments Range Protime (test code = 14.2 See_Comment [Autom ated 0122-2) message] The system which generated this result transmitted reference range : 11.9 - 14.2 seconds. The reference range was not used to interpret this result as normal/abnormal . INR (test code = 1.12 See_Comment [Automated 6611-6) message] The system which generated this result [...] valves. Lab Interpretation Normal (test code = 64229-0) [facility] CenterPROTHROMBIN TIME/[id number] 23:43:21 Test Item Value Reference Range Interpretation Comments PROTIME (BEAKER) 14.2 seconds 11.9-14.2 (test code = 759) INR (BEAKER) (test 1.12 See_Comment [Automat ed message] code = 370) The system G[employer] generated this result transmitted ref erence range: <=5.90. The reference range was not used to int erpret this result as normal/abnormal . RECOMMENDED COUMADIN/WARFARIN INR THERAPY RANGESSTANDARD DOSE: 2.0 - 3.0 Includes: PROPHYLAXIS for venous thrombosis, systemic embolization; TREATMENT for venous thrombosis and/or pulmonary embolus.HIGH RISK: Target INR is 2.5-3.5 for patients with mechanical heart valves.CBC with platelet count + automated [id number] 23:29:59 Test Item Value Reference Range Interpretation Comments WBC (test code = 6690-2) 9.1 See_Comment [A utomated message] The system Gengo generated this result transmitted ref erence range: 3.5 - 10 .5 K/L. The refe rence range was not u sed to interpret this result as normal/abnor mal. RBC (test code = 789-8) 4.25 See_Comment [Au tomated message] The system Gengo generated this result transmitted ref erence range: 3.93 - 5 .22 M/L. The refe rence range was not u sed to interpret this result as normal/abnor mal. MCHC (test code = 786-4) 34.5 See_Comment [A utomated message] The system Gengo generated this result transmitted ref erence range: [...] code = 395 See_Comment [Aut omated message] 047-3) The system Gengo generated this result transmitted ref erence range: 150 - 45 0 K/CU MM. The referen ce range was not u sed to interpret this result as normal/abnor mal. MPV (test code = 9.3 fL 9.4-12.3 L 22628-5) nRBC (test code = 413) 0 See_Comment [Aut omated message] The system Gengo generated this result transmitted ref erence range: [...] See_Comment [Aut omated message] 670) The system Gengo generated this result transmitted ref erence range: 1.56 - 6 .13 K/L. The refe rence range was not u sed to interpret this result as normal/abnor mal. # Lymphs (test code = 2.49 See_Comment [Auto mated message] 414) The system Gengo generated this result transmitted ref erence range: 1.18 - 3 .74 K/L. The refe rence range was not u sed to interpret this result as normal/abnor mal. # Monos (test code = 0.70 See_Comment H [Autom ated message] 415) The system Gengo generated this result transmitted ref erence range: 0.24 - 0 .36 K/L. The refe rence range was not u sed to interpret this result as normal/abnor mal. # Eos (test code = 416) 0.04 See_Comment [Au tomated message] The system Gengo generated this result transmitted ref erence range: 0.04 - 0 .36 K/L. The refe rence range was not u sed to interpret this result as normal/abnor mal. # Baso (test code = 417) 0.03 See_Comment [A utomated message] The system Gengo generated this result transmitted ref erence range: 0.01 - 0 .08 K/L. The refe rence range was not u sed to interpret this result as normal/abnor mal. Immature 0 % 0-1 Granulocytes-Relative (test code = 2801) Lab Interpretation (test Abnormal code = 24395-5) [facility] W/PLT COUNT & AUTO [id number] 23:29:59 Test Item Value Reference Range Interpretation [...] % 0-1 PERCENT (BEAKER) (test code = 2801)
--- NOTE | 2023-02-09 16:26 | RAD REPORT ---
EXAM DESCRIPTION: RAD - Chest Single View - 02/09/2023 4:13 pm CLINICAL HISTORY: fatigu Chest pain. COMPARISON: Chest Single View dated 07/26/2021; Chest Single View dated 04/11/2021 FINDINGS: Portable technique limits examination quality. The lungs are grossly clear. The heart is normal in size. Mildly tortuous thoracic aorta. No displace d fractures. IMPRESSION: No acute intrathoracic process suspected.
[2023-02-09 18:06] LABS: Hematocrit 33.4 % (36.0-45.0); MCV 83.6 fL (80-100); MPV 6.9 fL (7.6-11.3); RBC Red Blood Cell Count 3.99 M/uL (3.86-4.86)
[2023-02-09 18:26] LABS: Magnesium 2.1 mg/dL (1.6-2.4); Potassium 4.1 mEq/L (3.5-5.1); Troponin High Sensitivity 15.2 pg/mL (<58.9)
--- NOTE | 2023-02-09 19:14 | EDPHYS ---
Physician Documentation [facility] Name: Jaja Pan Age: 72 yrs Sex: Female : 1950 Arrival Date: 02/09/2023 Time: 14:59 Bed 19 Private MD: Enrique Peters T ED Physician David Kelly HPI: 02/09 17:55 This 72 yrs old Black Female presents to ER via Ambulatory with complaints of Chest kb Wall Pain. 17:55 The patient presents with generalized weakness. Onset: The symptoms/episode kb began/occurred yesterday. Context: occurred at home. Modifying factors: The symptoms are alleviated by nothing, the symptoms are aggravated by nothing. Associated signs and symptoms: The patient has no apparent associated signs or symptoms. Severity of symptoms: At their worst the symptoms were mild in the emergency department the symptoms are unchanged. Patient's baseline: Neuro: alert and fully oriented, Motor: no deficits, Ambulation: walks without assistance, Speech: normal. The patient has not experienced similar symptoms in the past. The patient has not recently seen a physician. Pt reports weakness and fatigue since yesterday. Denies chest pain, near syncope, dizziness, shortness of breath, lightheadedness. . Historical: - Allergies: 15:10 PENICILLINS; ll1 - PMHx: 15:10 Hypercholesterolemia; Hypertensive disorder; TIA; ll1 - PSHx: 15:10 None; ll1 - Immunization history:: Client reports receiving the 2nd dose of the Covid vaccine. - Social history:: Smoking status: Patient denies any tobacco usage or history of. ROS: 17:52 Constitutional: Negative for fever, chills, and weight loss. kb 17:52 Constitutional: Positive for fatigue. 17:52 Neuro: Positive for weakness. 17:52 All other systems are negative. Exam: 17:52 Constitutional: This is a well developed, well nourished patient who is awake, alert, kb and in no acute distress. Head/Face: Normocephalic, atraumatic. ENT: Moist Mucous membranes Cardiovascular: Regular rate and rhythm with a normal S1 and S2. No gallops, murmurs, or rubs. No pulse deficits. Respiratory: Respirations even and unlabored. No increased work of breathing. Talking in full sentences Abdomen/GI: Soft, non-tender. No distention Skin: Warm, dry with normal turgor. Normal color. MS/ Extremity: Pulses equal, no cyanosis. Neurovascular intact. Full, normal range of motion. Neuro: Awake and alert, GCS 15, oriented to person, place, time, and situation. Moves all extremities. Normal gait. Vital Signs: 15:08 BP 173 / 83; Pulse 96; Resp 17; Temp 98.6; Pulse Ox 98% on R/A; Pain 0/10; ll1 17:27 BP 155 / 93; Pulse 97; Resp 15; Pulse Ox 99% ; me1 18:11 BP 151 / 87; Pulse 76; Resp 16; Pulse Ox 98% ; me1 19:31 BP 140 / 88; Pulse 75; Resp 17 S; Pulse Ox 99% on R/A; ha1 15:08 Pain Scale: Adult ll1 MDM: 15:14 Patient medically screened. kb 17:51 Data reviewed: vital signs, nurses notes. kb 17:58 Differential diagnosis: generalized weakness, hypovolemia, idiopathic dizziness, kb near-syncope. Counseling: I had a detailed discussion with the patient and/or guardian regarding: the historical points, exam findings, and any diagnostic results supporting the discharge/admit diagnosis, lab results, radiology results, the need for outpatient follow up, a family practitioner, to return to the emergency department if symptoms worsen or persist or if there are any questions or concerns that arise at home. 19:11 Consideration of Admission/Observation Escalation of care including kb admission/observation considered. admission considered for weakness, but pt reports complete resolution of symptoms and prefers to go home. States she will follow up with Dr Peters and cardiology. 02/09 15:34 Order name: Basic Metabolic Panel; Complete Time: 18:37 kb 02/09 15:34 Order name: CBC with Diff; Complete Time: 18:08 kb 02/09 15:34 Order name: Magnesium; Complete Time: 18:37 kb 02/09 15:34 Order name: NT PRO-BNP; Complete Time: 18:37 kb 02/09 15:34 Order name: Troponin HS; Complete Time: 18:37 kb 02/09 15:34 Order name: XRAY Chest (1 view); Complete Time: 16:31 kb 02/09 15:34 Order name: EKG; Complete Time: 15:35 kb 02/09 15:34 Order name: Cardiac monitoring; Complete Time: 17:28 kb 02/09 15:34 Order name: EKG - Nurse/Tech; Complete Time: 19:03 kb 02/09 15:34 Order name: IV Saline Lock; Complete Time: 18:00 kb 02/09 15:34 Order name: Labs collected and sent; Complete Time: 18:00 kb 02/09 15:34 Order name: O2 Per Protocol; Complete Time: 17:28 kb 02/09 15:34 Order name: O2 Sat Monitoring; Complete Time: 17:28 kb Administered Medications: No medications were administered Disposition Summary: 02/09/23 19:13 Discharge Ordered Location: Home kb Condition: Stable kb Diagnosis - Other fatigue kb - Weakness kb Followup: kb - With: Emergency Department - When: As needed - Reason: Worsening of condition Followup: kb - With: Enrique Peters MD - When: 2 - 3 days - Reason: Recheck today's complaints, Continuance of care, Re-evaluation by your physician Followup: kb - With: Fox Churchill MD - When: 2 - 3 days - Reason: Recheck today's complaints Discharge Instructions: - Discharge Summary Sheet kb - Fatigue kb - Weakness, [id number]-Btjd kb Forms: - Medication Reconciliation Form kb - Thank You Letter kb - Antibiotic Education kb - Prescription Opioid Use kb - Patient Portal Instructions kb Addendum: 02/13/2023 10:52 Co-signature as Attending Physician, David Kelly MD I reviewed the patient's care r n provided by the Advanced Practice Provider and agree with the diagnosis and treatment plan. Signatures: Dispatcher [employer] Chichi Armas, BOAT MASTER-C BOAT MASTER-Ckb David Kelly MD MD rn Lewis, Lynsay, RN RN ll1
--- NOTE | 2023-02-09 19:14 | ER ---
Nurse's Notes [facility] Name: Jaja Pan Age: 72 yrs Sex: Female : 1950 Arrival Date: 02/09/2023 Time: 14:59 Bed 19 Private MD: Enrique Peters T Diagnosis: Other fatigue;Weakness Presentation: 02/09 15:08 Chief complaint: Patient states: No energy and tired in the chest for 2 days. No pain. ll1 Doesn't drink much water, and she feels like it too hot outside. Coronavirus screen: Vaccine status: Patient reports receiving the 2nd dose of the covid vaccine. Client denies travel out of the [place] in the last 14 days. At this time, the client does not indicate any symptoms associated with coronavirus-19. Ebola Screen: Patient denies travel to an Ebola-affected area in the 21 days before illness onset. Initial Sepsis Screen: Does the patient meet any 2 criteria? No. Patient's initial sepsis screen is negative. Does the patient have a suspected source of infection? No. Patient's initial sepsis screen is negative. Risk Assessment: Do you want to hurt yourself or someone else? Patient reports no desire to harm self or others. Onset of symptoms was February 08, 2023. 15:08 Method Of Arrival: Ambulatory ll1 15:08 Acuity: ALBERTO 3 ll1 Triage Assessment: 15:11 General: Appears in no apparent distress. Behavior is calm, cooperative, appropriate ll1 for age. General: tiredness in chest, fatigue, LOZADA at times. Pain: Denies pain. Historical: - Allergies: 15:10 PENICILLINS; ll1 - PMHx: 15:10 Hypercholesterolemia; Hypertensive disorder; TIA; ll1 - PSHx: 15:10 None; ll1 - Immunization history:: Client reports receiving the 2nd dose of the Covid vaccine. - Social history:: Smoking status: Patient denies any tobacco usage or history of. Screenin:05 [facility] ED Fall Risk Assessment (Adult) History of falling in the last 3 months, ph including since admission No falls in past 3 months (0 pts) Confusion or Disorientation No (0 pts) Intoxicated or Sedated No (0 pts) Impaired Gait No (0 pts) Mobility Assist Device Used No (0 pt) Altered Elimination No (0 pt) Score/Fall Risk Level 0 - 2 = Low Risk Oriented to surroundings, Maintained a safe environment, Hourly rounding (assess needs \\T\\ fall precautionary measures) done, Used ambulatory aids as needed (educated on \\T\\ assisted with). Abuse screen: Denies threats or abuse. Denies injuries from another. Nutritional screening: No deficits noted. Tuberculosis screening: No symptoms or risk factors identified. Assessment: 17:17 General: Appears comfortable, well groomed, well developed, well nourished, Behavior is me1 calm, cooperative, appropriate for age, Reports fatigue for >3 days, "being tired in the chest when she gets up and moves about." Denies fever, feeling ill, chills. Pain: Denies pain. Neuro: Level of Consciousness is awake, alert, obeys commands, Oriented to person, place, time, situation, Appropriate for age. Cardiovascular: Capillary refill < 3 seconds Patient's skin is warm and dry. Respiratory: Respiratory effort is even, unlabored, Respiratory pattern is regular, symmetrical. 18:11 Reassessment: No changes from previously documented assessment. me1 19:30 Reassessment: Patient and/or family updated on plan of care and expected duration. Pain ha1 level reassessed. Patient is alert, oriented x 3, equal unlabored respirations, skin warm/dry/pink. Patient denies pain at this time. 19:33 Pain: Pain began. ha1 Vital Signs: 15:08 BP 173 / 83; Pulse 96; Resp 17; Temp 98.6; Pulse Ox 98% on R/A; Pain 0/10; ll1 17:27 BP 155 / 93; Pulse 97; Resp 15; Pulse Ox 99% ; me1 18:11 BP 151 / 87; Pulse 76; Resp 16; Pulse Ox 98% ; me1 19:31 BP 140 / 88; Pulse 75; Resp 17 S; Pulse Ox 99% on R/A; ha1 15:08 Pain Scale: Adult ll1 ED Course: 15:01 Patient arrived in ED. mr 15:01 Enrique Peters MD is Private Physician. mr 15:10 Triage completed. ll1 15:10 Arm band placed on. ll1 15:14 Chichi Pan FNP-C is [facility]. kb 15:14 David Kelly MD is Attending Physician. kb 16:15 XRAY Chest (1 view) In Process Unspecified. EDMS 17:15 Teri Brand, RN is Primary Nurse. me1 18:00 Basic Metabolic Panel Sent. me1 18:00 CBC with Diff Sent. me1 18:00 Magnesium Sent. me1 18:00 NT PRO-BNP Sent. me1 18:00 Troponin HS Sent. me1 18:05 Patient has correct armband on for positive identification. Bed in low position. Call ph light in reach. Side rails up X 1. Client placed on continuous cardiac and pulse oximetry monitoring. NIBP monitoring applied. 18:05 Inserted saline lock: 22 gauge in left antecubital area, using aseptic technique. Blood ph collected. 18:06 Patient maintains SpO2 saturation greater than 95% on room air. ph 19:13 Enrique Peters MD is Referral Physician. kb 19:13 Fox Churchill MD is Referral Physician. kb 19:31 No provider procedures requiring assistance completed. IV discontinued, intact, ha1 bleeding controlled, No redness/swelling at site. Pressure dressing applied. 19:32 Provided Education on: following up with primary care and cardiologies.. ha1 Administered Medications: No medications were administered Medication: 18:06 VIS not applicable for this client. ph Outcome: 19:13 Discharge ordered by . kb 19:31 Discharged to home ambulatory. ha1 19:31 Condition: stable 19:31 Discharge instructions given to patient, Instructed on discharge instructions, follow up and referral plans. Demonstrated understanding of instructions, follow-up care. 19:33 Patient left the ED. ha1 Signatures: Dispatcher [employer] EDCT Chichi Pan, SCHEDULING CLERK-C SCHEDULING CLERK-Grupo Kelli BryantPriya, RN RN Toshia Gates RN RN 1 Misa Mitchell RN RN 1 Teri Brand, ILIANA RN la1
[2023-02-09 19:40] VITALS: TEMP 98.6
[2023-02-09 19:44] VITALS: BP 140/88; O2SAT 99
--- NOTE | 2023-02-13 13:15 | EKG ---
Test Date: 2023-02-09 Test Time: 18:57:47 Auto Body Repair Technician: MEASUREMENT RESULTS: Intervals: Rate: 75 OK: 218 QRSD: 80 QT: 390 QTc: 435 [place]: P: 67 OK: 218 QRS: 37 T: 52 INTERPRETIVE STATEMENTS: Sinus rhythm with 1st degree AV block Otherwise normal ECG Compared to ECG 07/26/2021 12:44:15 First degree AV block now present ST (T wave) deviation no longer present Electronically Signed On 02-13-23 13:10:06 CDT by Fox Churchill
== END 2023-02-09 19:33 | disposition home or self-care (01) ==
LOC: ER 14:59
DX: R53.83 Other fatigue (principal); R53.1 Weakness; E78.00 Pure hypercholesterolemia, unspecified; I10 Essential (primary) hypertension; Z88.0 Allergy status to penicillin; Z86.73 Personal history of transient ischemic attack (TIA), and cerebral infarction without residual deficits
CPT/HCPCS: 36415; 71045; 80048; 83735; 83880; 84484; 85025; 93005; 99284

== ENCOUNTER → 2023-08-30 | Emergency (ER) | payer OTHER ==
[2023-08-30 20:30] LABS: Absolute Lymphocytes (CBC) 2.4 K/uL (0.7-4.9); Hematocrit 27.9 % (36.0-45.0); Lymphocytes % 40.8 % (15.3-44.8); MCV 82.7 fL (80-100); MPV 6.6 fL (7.6-11.3); Platelets 374 thou/uL (152-406); RBC Red Blood Cell Count 3.38 M/uL (3.86-4.86)
[2023-08-30 20:38] LABS: Protime INR 1.1
[2023-08-30 20:58] LABS: Albumin 3.3 g/dL (3.4-5.0); Bilirubin Direct 0.5 mg/dL (0-0.2); Bilirubin Indirect, Calculated 1.3 mg/dL (0.2-0.8); Bilirubin Total 1.8 mg/dL (0.2-1.0); Magnesium 2.2 mg/dL (1.6-2.4); Protein, Total 8.4 g/dL (6.4-8.2); Troponin High Sensitivity 18.5 pg/mL (<58.9)
[2023-08-30 21:32] LABS: Specific Gravity 1.008 (1.005-1.030); Urine Bacteria <20 /HPF (<20); Urine Bilirubin NEGATIVE (Negative); Urine Blood Negative (Negative); Urine Clarity Turbid (Clear); Urine Color Light-Yellow (Yellow); Urine Glucose NEGATIVE (Negative); Urine Mucus Slight /HPF (None Seen); Urine Protein NEGATIVE (Negative); Urine RBC <5 /HPF (None Seen); Urine Urobilinogen Normal (Normal)
--- NOTE | 2023-08-30 21:56 | ER ---
Nurse's Notes [facility] Name: Jaja Pan Age: 73 yrs Sex: Female : 1950 Arrival Date: 08/30/2023 Time: 19:25 Bed 14 Private MD: Diagnosis: Weakness Presentation: 08/30 19:35 Chief complaint: Patient states: generalized weakness started tonight, denies fever, rv body aches, cough or congestion. 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 uses cane when ambulating. gets botox shots every 3 months for the right leg spasticity. Coronavirus screen: At this time, the client does not indicate any symptoms associated with coronavirus-19. Ebola Screen: No symptoms or risks identified at this time. 19:35 Method Of Arrival: Ambulatory rv 22:16 Initial Sepsis Screen: Does the patient meet any 2 criteria? No. Patient's initial as9 sepsis screen is negative. Does the patient have a suspected source of infection? No. Patient's initial sepsis screen is negative. Risk Assessment: Do you want to hurt yourself or someone else? Patient reports no desire to harm self or others. 22:16 Acuity: ALBERTO 3 as9 22:19 Onset of symptoms was August 30, 2023. as9 Triage Assessment: 19:39 General: Appears in no apparent distress. Behavior is calm, cooperative. Pain: Denies rv pain. Neuro: Level of Consciousness is awake, alert, obeys commands, Oriented to person, place, time, situation. Cardiovascular: Capillary refill < 3 seconds Patient's skin is warm and dry. Respiratory: Airway is patent Respiratory effort is even, unlabored. Derm: Skin is intact. Historical: - Allergies: 19:39 PENICILLINS; rv - PMHx: 19:39 Hypercholesterolemia; Hypertensive disorder; TIA; rv - PSHx: 19:39 None; rv - Immunization history:: Adult Immunizations up to date. - Social history:: Smoking status: Patient denies any tobacco usage or history of. Screenin:05 [facility] ED Fall Risk Assessment (Adult) History of falling in the last 3 months, tm6 including since admission No falls in past 3 months (0 pts). Abuse screen: Denies threats or abuse. Denies injuries from another. Nutritional screening: No deficits noted. Tuberculosis screening: No symptoms or risk factors identified. Assessment: 20:05 General: Appears in no apparent distress. Behavior is calm, cooperative. Pain: Denies tm6 pain. Neuro: Level of Consciousness is awake, alert, obeys commands, Oriented to person, place, time, situation. Cardiovascular: Reports None Capillary refill < 3 seconds Patient's skin is warm and dry. Cardiovascular: Rhythm is sinus rhythm. Respiratory: Airway is patent Respiratory effort is even, unlabored, Respiratory pattern is regular, symmetrical. GI: Abdomen is flat, non-distended, Reports anorexia. : No signs and/or symptoms were reported regarding the genitourinary system. EENT: No signs and/or symptoms were reported regarding the EENT system. Derm: No signs and/or symptoms reported regarding the dermatologic system. Musculoskeletal: Reports general weakness. Vital Signs: 19:35 BP 149 / 83; Pulse 95; Resp 15; Temp 98.5; Pulse Ox 99% ; rv 20:05 BP 145 / 78; Pulse 85; Resp 14; Pulse Ox 99% on R/A; Pain 0/10; tm6 20:05 Pain Scale: Adult tm6 ED Course: 19:31 Patient arrived in ED. gm2 19:33 [facility]C [facility] kb 19:33 Hector Morales MD is Attending Physician. kb 19:40 Arm band placed on right wrist. rv 19:56 Jeyson Cano, RN is Primary Nurse. tm6 20:05 Patient has correct armband on for positive identification. Bed in low position. Call tm6 light in reach. Side rails up X2. Provided Education on: plan of care. Client placed on continuous cardiac and pulse oximetry monitoring. NIBP monitoring applied. night monitor on. Door closed. Noise minimized. Warm blanket given. 20:05 EKG done, by ED staff. Patient maintains SpO2 saturation greater than 95% on room air. tm6 22:17 Triage completed. as9 22:17 No provider procedures requiring assistance completed. IV discontinued, intact, as9 bleeding controlled, No redness/swelling at site. Pressure dressing applied. Administered Medications: No medications were administered Medication: 20:05 VIS not applicable for this client. tm6 Outcome: 21:55 Discharge ordered by . kb 22:17 Discharged to home ambulatory, as9 22:17 Condition: good 22:17 Discharge instructions given to patient, Instructed on discharge instructions, follow up and referral plans. Demonstrated understanding of instructions, follow-up care, 22:19 Patient left the ED. as9 Signatures: Chichi Pan FNP-C FNP-Puneet Dasilva, RN RN Natasha Booker 2 Jeyson Cano RN RN tm6 Jesse Sandhu RN RN as9
--- NOTE | 2023-08-30 21:56 | EDPHYS ---
Physician Documentation [facility] Name: Jaja Pan Age: 73 yrs Sex: Female : 1950 Arrival Date: 08/30/2023 Time: 19:25 Bed 14 Private MD: ED Physician Hector Morales Historical: - Allergies: 08/30 19:39 PENICILLINS; rv - PMHx: 19:39 Hypercholesterolemia; Hypertensive disorder; TIA; rv - PSHx: 19:39 None; rv - Immunization history:: Adult Immunizations up to date. - Social history:: Smoking status: Patient denies any tobacco usage or history of. Vital Signs: 19:35 BP 149 / 83; Pulse 95; Resp 15; Temp 98.5; Pulse Ox 99% ; rv 20:05 BP 145 / 78; Pulse 85; Resp 14; Pulse Ox 99% on R/A; Pain 0/10; tm6 20:05 Pain Scale: Adult tm6 MDM: 19:34 Patient medically screened. kb 08/30 19:38 Order name: Basic Metabolic Panel; Complete Time: 20:59 kb 08/30 19:38 Order name: CBC with Diff; Complete Time: 20:39 kb 08/30 19:38 Order name: Hepatic Function; Complete Time: 20:59 kb 08/30 19:38 Order name: Magnesium; Complete Time: 20:59 kb 08/30 19:38 Order name: Protime (+inr); Complete Time: 20:39 kb 08/30 19:38 Order name: Ptt, Activated; Complete Time: 20:39 kb 08/30 19:38 Order name: Troponin High Sensitivity; Complete Time: 20:59 kb 08/30 19:38 Order name: Urinalysis w/ reflexes; Complete Time: 21:44 kb 08/30 19:38 Order name: EKG; Complete Time: 19:38 kb 08/30 19:38 Order name: Cardiac monitoring; Complete Time: 20:00 kb 08/30 19:38 Order name: EKG - Nurse/Tech; Complete Time: 19:56 kb 08/30 19:38 Order name: IV Saline Lock; Complete Time: 20:31 kb 08/30 19:38 Order name: Labs collected and sent; Complete Time: 20:31 kb 08/30 19:38 Order name: NPO; Complete Time: 20:08 kb 08/30 19:38 Order name: O2 Per Protocol; Complete Time: 20:01 kb 08/30 19:38 Order name: O2 Sat Monitoring; Complete Time: 20:01 kb Administered Medications: No medications were administered Disposition Summary: 08/30/23 21:55 Discharge Ordered Notes: Location: Home kb Condition: Stable kb Diagnosis - Weakness kb Followup: kb - With: Emergency Department - When: As needed - Reason: Worsening of condition Followup: kb - With: Private Physician - When: 2 - 3 days - Reason: Recheck today's complaints, Continuance of care, Re-evaluation by your physician Discharge Instructions: - Discharge Summary Sheet kb - Weakness, [id number] kb Forms: - Medication Reconciliation Form kb - Thank You Letter kb - Antibiotic Education kb - Prescription Opioid Use kb - Patient Portal Instructions kb - Leadership Thank You Letter kb Signatures: Dispatcher [employer] Chichi Armas FNP-Chiquita SANTIAGO-Puneet Dasilva, RN RN rv
[2023-08-30 22:23] VITALS: TEMP 98.5; O2SAT 99
[2023-08-30 22:46] VITALS: BP 145/78
--- NOTE | 2023-08-31 16:06 | EKG ---
Test Date: 2023-08-30 Test Time: 19:54:52 Stage Driver: Dionisio MEASUREMENT RESULTS: Intervals: Rate: 89 CT: 226 QRSD: 78 QT: 354 QTc: 430 [place]: P: 63 CT: 226 QRS: 76 T: 23 INTERPRETIVE STATEMENTS: Sinus rhythm with 1st degree AV block Otherwise normal ECG Compared to ECG 02/09/2023 18:57:47 No significant changes Electronically Signed On 08-31-23 16:04:32 DEOILING MACHINE OPERATOR by Fox Churchill
== END ==
LOC: ER 19:25
DX: R53.1 Weakness (principal); I10 Essential (primary) hypertension; Z86.73 Personal history of transient ischemic attack (TIA), and cerebral infarction without residual deficits; Z88.0 Allergy status to penicillin
CPT/HCPCS: 36415; 80048; 80076; 81001; 83735; 84484; 85025; 85610; 85730; 93005